=== PATIENT | male | born 1955 | race Caucasian/White ===

== ENCOUNTER → 2021-03-05 11:43 | Outpatient (BNVA) | payer MEDICARE, MEDICAID, SELFPAY | PROVIDERS: Family Provider Family Medicine; PCP Family Medicine; Visit Provider Nurse Practitioner Family | DX: E11.65 Type 2 diabetes mellitus with hyperglycemia (principal) | CPT/HCPCS: 81000; 82043 ==

== ENCOUNTER → 2021-06-25 13:04 | Outpatient (BNVA) | payer MEDICARE, MEDICAID, SELFPAY | PROVIDERS: Family Provider Family Medicine; PCP Family Medicine; Visit Provider Nurse Practitioner Family | DX: R30.0 Dysuria (principal) | CPT/HCPCS: 81000 ==

== ENCOUNTER 2022-03-09 15:22 | Inpatient (IN) | payer MEDICARE, MEDICAID, SELFPAY ==
[2022-03-09] VITALS (7 sets, daily range): BP systolic 157–196; BP diastolic 61–104; PULSE 100–110; RESP 18–24; TEMP 37.2–37.8; O2SAT 91–96; BMI 40.2
--- NOTE | 2022-03-09 15:27 | W.ED.SOB ---
Documented by User: Pio Govea MD 03/21/22 01:04 HPI - SOB/Dyspnea General: Chief Complaint: Fever Stated Complaint: FEVER; SOB Time Seen by Provider: 03/09/22 15:27 History of Present Illness: HPI Narrative: Mr. Figueroa is a 66-year-old gentleman with complex past medical history who presents to the emergency department due to fever with concern over infection. He reports a few day history of increased cough and generalized malaise though no other specific symptoms. Earlier today he had a fall and was seen at [facility]. Apparently he was discharged and upon arrival at the detention was found to have coarse breath sounds with fever and tachycardia. Patient denies history of oxygen requirement though is requiring oxygen now. Overall intensity symptoms is moderate. Course has worsened. No other specific changes in health, exacerbating, or alleviating factors identified. Per discussion with ER physician at [place] a CT of the head and lumbar spine were performed without acute pathology identified. He did have leukocytosis and coarse sounding breath sounds however chest x-ray was reportedly negative and symptoms improved with a normal ABG. The patient was unable to give a urine sample and desires discharge. Onset (ago): hour(s) Severity: moderate Exacerbating factors: exertion Relieving factors: nothing Known history of: COPD Treatment prior to arrival: oxygen Review of Systems General: Reports: 10 or more systems reviewed and unremarkable except in HPI and below PFSH ED PFSH: Medical History Above knee amputation of right lower extremity BPH (benign prostatic hyperplasia) CAD (coronary artery disease) Chronic pain Diabetes GERD (gastroesophageal reflux disease) Hemiplegia affecting left nondominant side Hyperlipidemia Hypertension Hypothyroidism Obesity Stroke Surgical History Hx of AKA (above knee amputation) Social History Lives independently: No Housing: Skilled Nursing Physical Exam Const: COMMON NORMALS: patient oriented x3 GENERAL APPEARANCE: cooperative, well developed and ill appearing HENMT: COMMON NORMALS: normocephalic and atraumatic HEAD & SCALP: normocephalic and atraumatic Eye: COMMON NORMALS: conjunctivae normal CONJUNCTIVA: Yes conjunctivae normal SCLERA: sclerae normal Neck/C-Spine: COMMON NORMALS: supple GENERAL: Yes trachea midline Resp: EFFORT & INSPECTION: Yes able to speak in complete sentences and Yes tachypneic AUSCULTATION: rhonchi and diminished lung sounds Cardio: COMMON NORMALS: regular rhythm RATE: tachycardic RHYTHM: regular rhythm GI: COMMON NORMALS: Soft to palpation PALPATION: Yes Soft to palpation and No Tenderness to palpation present (GI) PERCUSSION: normal to percussion Extremity: NARRATIVE EXTREMITY EXAM: Right AKA GENERAL: Yes normal exam except as noted and No edema Neuro: COMMON NORMALS: patient oriented x3 SENSORIUM/ORIENTATION: No Orientation impaired and Yes somnolent Psych: COMMON NORMALS: mental status grossly normal and Normal thought process present THOUGHT PROCESS: Normal thought process present Course ED course: - Patient was seen and evaluated by me at bedside - Patient placed on cardiac monitors, IV access obtained - Initial evaluation notable for exam as above, ill-appearing with suspicion for pneumonia. Worsening oxygen requirement with hypoxic respiratory failure removed. - Labs and xrays personally interpreted by me. EKG showing sinus tachycardia with no STEMI. - Antibiotic given - Labs notable for leukocytosis, normal hemoglobin. Metabolic panel with hypoxia and respiratory alkalosis. Metabolic panel with intravascular dehydration. Delta troponin is negative. - Imaging notable for no lobar consolidation or pneumothorax, questionable minimal opacities which are somewhat not impressive when compared to patient's clinical presentation. CT scan pending at time of patient handoff - Upon serial reexamination after treatment the patient was somewhat improved. I discussed the case with the ER physician at [place], CT head performed there and CT spine without acute abnormality. - Based on patient history, evaluation, and testing as interpreted the most likely cause of the patient's condition is pneumonia sepsis - I discussed the case with Dr. Monet however patient care handed off to Dr. Martinez pending completion of ED evaluation. Note: Click bubbles or prepopulated [place] in note writing are used for assistance with data collection and billing and are inherently more limited than narrative and other text portions of this note. Please use narrative for additional clinical history and defer to narrative/free test for any case of contradictory information. If information appears in only free text or click bubble it should be considered present or absent as reported. Please contact note senior writer for clarifications of clinical information or contradictory information. MDM is a brief summary, contradictory or erroneous seeming information should be clarified and full note should be reviewed. Vital Signs: Vital signs: Vital Signs Temperature 98.2 F 03/12/22 16:25 Pulse Rate 78 03/12/22 16:25 Respiratory Rate 18 03/12/22 16:25 Blood Pressure 148/70 03/12/22 16:25 Pulse Oximetry 95 03/12/22 16:25 MDM - SOB/Dyspnea Medical Decision Making 66-year-old gentleman presenting with respiratory symptoms found to have pneumonia sepsis. Patient treated with antibiotics. Admitted for further management. 66-year-old male checked out by the previous physician at shift change. This gentleman is hypoxic. He is tachycardic. He has a leukocytosis of 15. Chest CT reveals pneumonia. He is hyperglycemic. He will be admitted for hypoxic respiratory failure with pneumonia and sepsis. Dr. Govea spoke with Dr. Monet earlier about the patient. Medical Records I reviewed the patient's medical records. Lab Data I reviewed the patient's lab results. : 03/12/22 04:14 03/12/22 04:14 Labs/Radiology: Radiology Impressions Chest X-Ray 03/09/22 15:33 IMPRESSION: Subtle ill-defined bibasilar opacities which may reflect atelectasis versus infiltrates. Chest/Abdomen/Pelvis CT 03/09/22 16:13 IMPRESSION: Right lower lobe pneumonia. IMPRESSION: Colonic constipation is present. Chest CTA 03/10/22 05:32 IMPRESSION: 1. Quality of this examination is suboptimal. Centrally there is no pulmonary embolism. Distal peripheral emboli not excluded. There are a few areas of suspicion for small emboli in the lower lobe pulmonary arteries. 2. RIGHT lower lobe pneumonia. Mildly improved since the prior study. 3. Indeterminate but mildly enlarged LEFT axillary and RIGHT hilar lymph nodes measuring up to 19 mm. May be reactive. 4. Subtle area of decreased attenuation in the T5 vertebral body. Could represent a very early metastatic lesion. Bone scan imaging may be helpful for clarification. Bone Scan Nuclear Medicine 03/11/22 06:31 IMPRESSION: There are no osseous lesions suspicious for metastatic disease. No abnormal activity in the T5 vertebral body. Laboratory Results WBC 15.0 10^3/uL (4.0-10.0) H 03/09/22 17:28 Corrected WBC Cancelled 03/09/22 16:19 RBC 4.96 10^6/uL (4.1-5.3) 03/09/22 17: Hgb 14.0 g/dL (11.7-16.6) 03/09/22 17: Hct 41.4 % (42.0-52.0) L 03/09/22 17: MCV 83.5 fl (80-94) 03/09/22 17: MCH 28.2 pg (28.0-34.0) 03/09/22 17: MCHC 33.8 g/dL (30.0-36.0) 03/09/22: RDW 12.8 % (12.1-15.1) 03/09/22: Plt Count 172 10^3/cmm (130-400) 03/09/22 17: MPV 10.8 fL (7.4-10.4) H 03/09/22 17:28 Gran % Cancelled 03/09/22 16:19 Neut % (Auto) 71.6 % 03/09/22 17: Lymph % (Auto) 18.5 % 03/09/22 17: [place] % (Auto) 8.7 % 03/09/22 17: Eos % (Auto) 0.5 % 03/09/22 17: Baso % (Auto) 0.4 % 03/09/22: Neut # (Auto) 10.74 10^3/uL (1.8-7.7) H 03/09/22 17: Lymph # (Auto) 2.8 10^3/uL (0.8-4.8) 03/09/22 17:28 [place] # (Auto) 1.3 10^3/uL (0.2-0.9) H 03/09/22 17: Eos # (Auto) 0.1 10^3/uL (0.0-0.8) 03/09/22 17: Baso # (Auto) 0.1 10^3/uL (0.0-0.1) 03/09/22 17: Absolute Gran (auto) Cancelled 03/09/22 16:19 Nucleated RBC % (auto) 0 % 03/09/22 17:28 Nucleated RBCs # 0.0 /100WBC 03/09/22 17:28 D-Dimer 0.82 ug/mIFEU (0-0.59) H 03/09/22 16:19 Specimen Type Arterial 03/09/22 15:58 Sample Site Radial, left 03/09/22 15:58 ABG pH 7.50 (7.35-7.45) H 03/09/22 15:58 ABG pCO2 35.2 mmHg (35-45) 03/09/22 15:58 ABG pO2 63.4 mmHg (80.0-100.0) L 03/09/22 15:58 ABG HCO3 27.5 mmol/L (22-26) H 03/09/22 15:58 ABG Base Excess 4.5 mmol/L (-2.0-2.0) H 03/09/22 15:58 Kuldeep Test Pos 03/09/22 15:58 Hematocrit 45.5 % (42-52) 03/09/22 15:58 O2 Delivery Device Nc 03/09/22 15:58 O2 Liters/Min 4.0 % 03/09/22 15:58 FiO2 36.0 % 03/09/22 15:58 Drapery Installer ID Cak 03/09/22 15:58 Sodium 130 mmol/L (136-145) L 03/09/22 17:28 Potassium 4.5 mmol/L (3.5-5.1) 03/09/22 17:28 Chloride 91 mmol/L (98-107) L 03/09/22 17:28 Carbon Dioxide 27 mmol/L (22-29) 03/09/22 17:28 Anion Gap 16.5 (5-19) 03/09/22 17:28 BUN 20 mg/dL (8-23) 03/09/22 17:28 Creatinine 1.0 mg/dL (0.7-1.2) 03/09/22 17:28 GFR Calculation 74.5 mL/min (90-130) L 03/09/22 17:28 Glucose 252 mg/dL (65-115) H 03/09/22 17:28 POC Glucose 259 mg/dL (70-110) H 03/09/22 16:02 Calculated Osmolality 281 mOsm/kg (285-295) L 03/09/22 17:28 Lactic Acid 1.8 mmol/L (0.5-2.2) 03/09/22 17:28 Calcium 9.4 mg/dL (8.5-10.5) 03/09/22 17:28 Total Bilirubin 0.9 mg/dL (0.15-1.2) 03/09/22 17:28 AST 21 U/L (0-40) 03/09/22 17:28 ALT 25 U/L (0-41) 03/09/22 17:28 Alkaline Phosphatase 90 IU/L (40-130) 03/09/22 17:28 Troponin T Baseline 28 ng/L (0-15) H 03/09/22 17:28 C-Reactive Protein 179.4 mg/L (0.0-4.9) H 03/09/22 17: NT-Pro-B Natriuret Pep 289 pg/mL (0-125) H 03/09/22 17:28 Total Protein 7.6 g/dL (6.6-8.7) 03/09/22 17:28 Albumin 3.9 g/dL (3.5-5.2) 03/09/22 17: Globulin 3.7 g/dL (1.3-4.6) 03/09/22 17:28 Procalcitonin 0.24 ng/mL (0-0.5) 03/09/22 17:28 TSH 0.59 uIU/mL (0.27-4.20) 03/09/22 17:28 Urine Color Yellow (Yellow) 03/09/22 17:50 Urine Appearance Clear (CLEAR) 03/09/22 17:50 Urine pH 6.5 (5-7) 03/09/22 17:50 Ur Specific [place] 1.010 (1.005-1.030) 03/09/22 17:50 Urine Protein Neg (Negative) 03/09/22 17:50 Urine Glucose (UA) 2+ (Normal) H 03/09/22 17:50 Urine Ketones Negative (Negative) 03/09/22 17:50 Urine Blood Neg (Negative) 03/09/22 17:50 Urine Nitrate Negative (Negative) 03/09/22 17:50 Urine Bilirubin Neg (Negative) 03/09/22 17:50 Urine Urobilinogen Norm mg/dL (Negative) 03/09/22 17:50 Ur Leukocyte Esterase Negative (Negative) 03/09/22 17:50 Coronavirus 229E (PCR) Not detected (NOT DETECT) 03/09/22 16:00 SARS-CoV-2 (PCR) Not detected (NOT DETECT) 03/09/22 16:00 Discharge Plan Discharge Patient Disposition: Admitted As Inpatient Admit Provider: Lawrence Monet Clinical Impression: Sepsis, Acute and chronic respiratory failure with hypoxia Condition: Stable Discharge Diet: Diabetic Discharge Activity: Use walker/crutches as instructed Coding Level of Care Code ED Curriculum Consultant for Chg Fwd Exam Comprehensive Documented by User: Javi Martinez DO 03/09/22 19:30 HPI - SOB/Dyspnea General: Chief Complaint: Fever Stated Complaint: FEVER; SOB Time Seen by Provider: 03/09/22 15:27 PFS ED PFSH: Medical History Above knee amputation of right lower extremity BPH (benign prostatic hyperplasia) CAD (coronary artery disease) Chronic pain Diabetes GERD (gastroesophageal reflux disease) Hemiplegia affecting left nondominant side Hyperlipidemia Hypertension Hypothyroidism Obesity Stroke Surgical History Hx of AKA (above knee amputation) Social History Lives independently: No Housing: Skilled Nursing Course Vital Signs: Vital signs: Vital Signs Temperature 98.2 F 03/12/22 16:25 Pulse Rate 78 03/12/22 16:25 Respiratory Rate 18 03/12/22 16:25 Blood Pressure 148/70 03/12/22 16:25 Pulse Oximetry 95 03/12/22 16:25 MDM - SOB/Dyspnea Medical Decision Making 66-year-old male checked out by the previous physician at shift change. This gentleman is hypoxic. He is tachycardic. He has a leukocytosis of 15. Chest CT reveals pneumonia. He is hyperglycemic. He will be admitted for hypoxic respiratory failure with pneumonia and sepsis. Dr. Govea spoke with Dr. Monet earlier about the patient. Lab Data : 03/12/22 04:14 03/12/22 04:14 Labs/Radiology: Radiology Impressions Chest X-Ray 03/09/22 15:33 IMPRESSION: Subtle ill-defined bibasilar opacities which may reflect atelectasis versus infiltrates. Chest/Abdomen/Pelvis CT 03/09/22 16:13 IMPRESSION: Right lower lobe pneumonia. IMPRESSION: Colonic constipation is present. Chest CTA 03/10/22 05:32 IMPRESSION: 1. Quality of this examination is suboptimal. Centrally there is no pulmonary embolism. Distal peripheral emboli not excluded. There are a few areas of suspicion for small emboli in the lower lobe pulmonary arteries. 2. RIGHT lower lobe pneumonia. Mildly improved since the prior study. 3. Indeterminate but mildly enlarged LEFT axillary and RIGHT hilar lymph nodes measuring up to 19 mm. May be reactive. 4. Subtle area of decreased attenuation in the T5 vertebral body. Could represent a very early metastatic lesion. Bone scan imaging may be helpful for clarification. Bone Scan Nuclear Medicine 03/11/22 06:31 IMPRESSION: There are no osseous lesions suspicious for metastatic disease. No abnormal activity in the T5 vertebral body. Laboratory Results WBC 15.0 10^3/uL (4.0-10.0) H 03/09/22 17:28 Corrected WBC Cancelled 03/09/22 16:19 RBC 4.96 10^6/uL (4.1-5.3) 03/09/22 17:28 Hgb 14.0 g/dL (11.7-16.6) 03/09/22 17:28 Hct 41.4 % (42.0-52.0) L 03/09/22 17:28 MCV 83.5 fl (80-94) 03/09/22 17:28 MCH 28.2 pg (28.0-34.0) 03/09/22 17:28 MCHC 33.8 g/dL (30.0-36.0) 03/09/22 17:28 RDW 12.8 % (12.1-15.1) 03/09/22 17:28 Plt Count 172 10^3/cmm (130-400) 03/09/22 17:28 MPV 10.8 fL (7.4-10.4) H 03/09/22 17:28 Gran % Cancelled 03/09/22 16:19 Neut % (Auto) 71.6 % 03/09/22 17:28 Lymph % (Auto) 18.5 % 03/09/22 17:28 [place] % (Auto) 8.7 % 03/09/22 17:28 Eos % (Auto) 0.5 % 03/09/22 17:28 Baso % (Auto) 0.4 % 03/09/22 17:28 Neut # (Auto) 10.74 10^3/uL (1.8-7.7) H 03/09/22 17:28 Lymph # (Auto) 2.8 10^3/uL (0.8-4.8) 03/09/22 17:28 [place] # (Auto) 1.3 10^3/uL (0.2-0.9) H 03/09/22 17:28 Eos # (Auto) 0.1 10^3/uL (0.0-0.8) 03/09/22 17:28 Baso # (Auto) 0.1 10^3/uL (0.0-0.1) 03/09/22 17:28 Absolute Gran (auto) Cancelled 03/09/22 16:19 Nucleated RBC % (auto) 0 % 03/09/22 17:28 Nucleated RBCs # 0.0 /100WBC 03/09/22 17:28 D-Dimer 0.82 ug/mIFEU (0-0.59) H 03/09/22 16:19 Specimen Type Arterial 03/09/22 15:58 Sample Site Radial, left 03/09/22 15:58 ABG pH 7.50 (7.35-7.45) H 03/09/22 15:58 ABG pCO2 35.2 mmHg (35-45) 03/09/22 15:58 ABG pO2 63.4 mmHg (80.0-100.0) L 03/09/22 15:58 ABG HCO3 27.5 mmol/L (22-26) H 03/09/22 15:58 ABG Base Excess 4.5 mmol/L (-2.0-2.0) H 03/09/22 15:58 Kuldeep Test Pos 03/09/22 15:58 Hematocrit 45.5 % (42-52) 03/09/22 15:58 O2 Delivery Device Nc 03/09/22 15:58 O2 Liters/Min 4.0 % 03/09/22 15:58 FiO2 36.0 % 03/09/22 15:58 Drapery Installer ID Cak 03/09/22 15:58 Sodium 130 mmol/L (136-145) L 03/09/22 17:28 Potassium 4.5 mmol/L (3.5-5.1) 03/09/22 17:28 Chloride 91 mmol/L (98-107) L 03/09/22 17:28 Carbon Dioxide 27 mmol/L (22-29) 03/09/22 17:28 Anion Gap 16.5 (5-19) 03/09/22 17:28 BUN 20 mg/dL (8-23) 03/09/22 17:28 Creatinine 1.0 mg/dL (0.7-1.2) 03/09/22 17:28 GFR Calculation 74.5 mL/min (90-130) L 03/09/22 17:28 Glucose 252 mg/dL (65-115) H 03/09/22 17:28 POC Glucose 259 mg/dL (70-110) H 03/09/22 16:02 Calculated Osmolality 281 mOsm/kg (285-295) L 03/09/22 17:28 Lactic Acid 1.8 mmol/L (0.5-2.2) 03/09/22 17:28 Calcium 9.4 mg/dL (8.5-10.5) 03/09/22 17:28 Total Bilirubin 0.9 mg/dL (0.15-1.2) 03/09/22 17:28 AST 21 U/L (0-40) 03/09/22 17:28 ALT 25 U/L (0-41) 03/09/22 17:28 Alkaline Phosphatase 90 IU/L (40-130) 03/09/22 17:28 Troponin T Baseline 28 ng/L (0-15) H 03/09/22 17:28 C-Reactive Protein 179.4 mg/L (0.0-4.9) H 03/09/22 17:28 NT-Pro-B Natriuret Pep 289 pg/mL (0-125) H 03/09/22 17:28 Total Protein 7.6 g/dL (6.6-8.7) 03/09/22 17:28 Albumin 3.9 g/dL (3.5-5.2) 03/09/22 17:28 Globulin 3.7 g/dL (1.3-4.6) 03/09/22 17:28 Procalcitonin 0.24 ng/mL (0-0.5) 03/09/22 17:28 TSH 0.59 uIU/mL (0.27-4.20) 03/09/22 17:28 Urine Color Yellow (Yellow) 03/09/22 17:50 Urine Appearance Clear (CLEAR) 03/09/22 17:50 Urine pH 6.5 (5-7) 03/09/22 17:50 Ur Specific [place] 1.010 (1.005-1.030) 03/09/22 17:50 Urine Protein Neg (Negative) 03/09/22 17:50 Urine Glucose (UA) 2+ (Normal) H 03/09/22 17:50 Urine Ketones Negative (Negative) 03/09/22 17:50 Urine Blood Neg (Negative) 03/09/22 17:50 Urine Nitrate Negative (Negative) 03/09/22 17:50 Urine Bilirubin Neg (Negative) 03/09/22 17:50 Urine Urobilinogen Norm mg/dL (Negative) 03/09/22 17:50 Ur Leukocyte Esterase Negative (Negative) 03/09/22 17:50 Coronavirus 229E (PCR) Not detected (NOT DETECT) 03/09/22 16:00 SARS-CoV-2 (PCR) Not detected (NOT DETECT) 03/09/22 16:00 Discharge Plan Discharge Patient Disposition: Admitted As Inpatient Admit Provider: Lawrence Monet Clinical Impression: Sepsis, Acute and chronic respiratory failure with hypoxia Condition: Stable Discharge Diet: Diabetic Discharge Activity: Use walker/crutches as instructed Coding Level of Care Code ED Curriculum Consultant for Chg Fwd Exam Comprehensive
--- NOTE | 2022-03-09 15:33 | XRR_ITS ---
PROCEDURE INFORMATION: Exam: XR Chest Exam date and time: 03/09/2022 3:40 PM Age: 66 years old Clinical indication: Cough and shortness of breath; Additional info: SOB, cough TECHNIQUE: Imaging protocol: Radiologic exam of the chest. Views: 1 view. COMPARISON: No relevant prior studies available. FINDINGS: Lungs: Subtle ill-defined bibasilar opacities. Pleural spaces: No pleural effusion. No pneumothorax. Heart/Mediastinum: No cardiomegaly. Bones/joints: Visualized osseous structures are intact. XR/XR chest 1V portable [id number] IMPRESSION: Subtle ill-defined bibasilar opacities which may reflect atelectasis versus infiltrates.
[2022-03-09 16:07] LABS: Glucose Point of Care 259 mg/dL (70-110)
[2022-03-09 16:09] LABS: ABG PCO2 35.2 mmHg (35-45); Arterial Blood Gas Hematocrit 45.5 % (42-52); Base Excess ABG 4.5 mmol/L (-2.0-2.0); Blood Gas Allen Test Pos; Blood Gas Operator Identificat CAK; Blood Gas Sample Site Radial, left; Blood Gas Sample Type Arterial; HCO3 ABG 27.5 mmol/L (22-26); Oxygen Device NC; PO2 ABG 63.4 mmHg (80.0-100.0)
--- NOTE | 2022-03-09 16:13 | CTR_ITS ---
PROCEDURE INFORMATION: Exam: CT Chest Without Contrast; Diagnostic Exam date and time: 03/09/2022 6:12 PM Age: 66 years old Clinical indication: Abnormal diagnostic tests; Prior surgery; Surgery type: Gb; Patient HX: Cough with fever and hypoxia. Elevated wbc. ; Additional info: AMS, sepsis, new o2 TECHNIQUE: Imaging protocol: Diagnostic computed tomography of the chest without contrast. Radiation optimization: All CT scans at this facility use at least one of these dose optimization techniques: automated exposure control; mA and/or kV adjustment per patient size (includes targeted exams where dose is matched to clinical indication); or iterative reconstruction. COMPARISON: CR (CHEST, ) 03/09/2022 3:40 PM RADIATION DOSE METRICS: Total DLP (mGy-cm): 3772.34 FINDINGS: Lungs: Right lower lobe pneumonia. Pleural spaces: Unremarkable. No pneumothorax. No pleural effusion. Heart: Multivessel atherosclerotic disease which involves the coronary arteries. There are postoperative changes in the region of the atrial septum. Lymph nodes: Unremarkable. No enlarged lymph nodes. Vasculature: Unremarkable. No aortic aneurysm. Bones/joints: Unremarkable. No acute fracture. Soft tissues: Unremarkable. PROCEDURE INFORMATION: Exam: CT Abdomen And Pelvis Without Contrast Exam date and time: 03/09/2022 6:12 PM Age: 66 years old Clinical indication: Abnormal diagnostic tests; Prior surgery; Surgery type: Gb; Patient HX: Cough with fever and hypoxia. Elevated wbc. ; Additional info: AMS, sepsis, new o2 TECHNIQUE: Imaging protocol: Computed tomography of the abdomen and pelvis without contrast. Radiation optimization: All CT scans at this facility use at least one of these dose optimization techniques: automated exposure control; mA and/or kV adjustment per patient size (includes targeted exams where dose is matched to clinical indication); or iterative reconstruction. COMPARISON: CR (CHEST, ) 03/09/2022 3:40 PM RADIATION DOSE METRICS: Total DLP (mGy-cm): 3772.34 FINDINGS: Heart: Multivessel atherosclerotic disease which involves the coronary arteries. Liver: Normal. No mass. Gallbladder and bile ducts: The gallbladder has been removed. Pancreas: Normal. No ductal dilation. Spleen: Normal. No splenomegaly. Adrenal glands: Normal. No mass. Kidneys and ureters: Normal. No hydronephrosis. Stomach and bowel: Colonic constipation is present. Appendix: No evidence of appendicitis. Intraperitoneal space: Unremarkable. No free air. No significant fluid collection. Vasculature: Unremarkable. No abdominal aortic aneurysm. Lymph nodes: Multiple subcentimeter mesenteric and retroperitoneal lymph nodes. There is a 2.1 x 1.6 cm left retroperitoneal lymph node. Some of the retroperitoneal lymph nodes have an abnormal/rounded appearance. Urinary bladder: There is a Anton catheter and air in the bladder. Reproductive: Unremarkable as visualized. Bones/joints: Unremarkable. No acute fracture. Soft tissues: There is edema in the subcutaneous soft tissues of the ventral abdomen. CT/[place] [id number] IMPRESSION: Right lower lobe pneumonia. IMPRESSION: Colonic constipation is present.
[2022-03-09] MEDS: cefTRIAXone 1,000 MG in sodium chloride 0.9% (plus) 50 ML 100 MG IV (17:20)
--- NOTE | 2022-03-09 17:20 | PM.HP ---
Providers/Chief Complaint Chief Complaint: FEVER; SOB History of Present Illness Jose Maria Figueroa is a 66 year old male came from [facility] for chief complaint of worsening shortness of breath. Patient is stating that he fell off his wheelchair few days ago and since then his cough has not subsided. He spiked a fever today that prompted his visit to the ER. From [facility] he was sent to [facility] where he was diagnosed with leukocytosis, he was given some fluids, he was diagnosed with some coarse rhonchi and crackles and he was discharged back to [facility], after today's event he was sent to our hospital for further evaluation. At the time evaluation patient is stating that he has residual weakness on left side from his previous stroke He also has short-term memory loss Endorsing fever, cough, denying chest pain, diarrhea, abdominal pain dysuria. He does not use oxygen on daily basis, his ox requirement is new currently requiring 5 L nasal cannula Is febrile, tachycardic and tachypneic ABG revealed hypoxia on 4 L nasal cannula Chest x-ray consistent with pneumonia Review of Systems Const: Reports: fever(s), chills and body aches Eyes: Denies: change in vision ENMT: Denies: throat pain Card: Reports: swelling of feet/ankles; Denies: chest pain Resp: Reports: dyspnea GI: Denies: abdominal pain : Denies: flank pain Musc: Denies: neck pain Skin/Breast: Reports: rash, changing lesions and lesions Psych: Denies: anxiety Endo: Denies: polyuria Nimesh/Lymph: Denies: easy bruising All/Imm: Denies: urticaria Medications/Allergies Home Medications Medication Instructions Recorded Confirmed Last Taken Type acetaminophen 325 mg tablet 650 mg PO Q4H PRN 03/09/22 03/09/22 Unknown History alprazolam 1 mg tablet 0.5 mg PO BEDTIME 03/09/22 03/09/22 Unknown History ammonium lactate 12 % topical cream 1 applic TOPICAL BID PRN 03/09/22 03/09/22 Unknown History aspirin 81 mg chewable tablet 81 mg PO DAILY 03/09/22 03/09/22 Unknown History atorvastatin 40 mg tablet 40 mg PO BEDTIME 03/09/22 03/09/22 Unknown History baclofen 10 mg tablet 10 mg PO TID 03/09/22 03/09/22 Unknown History bisacodyl 10 mg rectal suppository 10 mg FL DAILY PRN 03/09/22 03/09/22 Unknown History bisacodyl 5 mg tablet,delayed 20 mg PO DAILY PRN 03/09/22 03/09/22 Unknown History release carbamide peroxide 6.5 % ear drops 5 drp OTIC (EAR) DAILY PRN 03/09/22 03/09/22 Unknown History cholecalciferol (vitamin D3) 10 20 mcg PO DAILY 03/09/22 03/09/22 Unknown History mcg (400 unit) capsule (Vitamin D3) clopidogrel 75 mg tablet 75 mg PO DAILY 03/09/22 03/09/22 Unknown History docusate sodium 100 mg capsule 100 mg PO DAILY 03/09/22 03/09/22 Unknown History escitalopram oxalate 20 mg tablet 20 mg PO DAILY 03/09/22 03/09/22 Unknown History (Lexapro) exenatide microspheres 2 mg/0.85 2 mg SUBCUT Q7D 03/09/22 03/09/22 Unknown History mL subcutaneous auto-injector (Bydavie BCi) furosemide 20 mg tablet (Lasix) 20 mg PO DAILY 03/09/22 03/09/22 Unknown History gabapentin 600 mg tablet 600 mg PO TID 03/09/22 03/09/22 Unknown History hydrocodone 5 mg-acetaminophen 325 1 tab PO Q8H PRN 03/09/22 03/09/22 Unknown History mg tablet ibuprofen 600 mg tablet 600 mg PO Q6H PRN 03/09/22 03/09/22 Unknown History icosapent ethyl 1 gram capsule 2 g PO BID 03/09/22 03/09/22 Unknown History (Vascepa) insulin aspart U-100 100 unit/mL See Rx Instructions .ROUTE .COMPLEX 03/09/22 03/09/22 Unknown History subcutaneous solution (Novolog U-100 Insulin aspart) insulin detemir U-100 100 unit/mL 84 unit SUBCUT BID 03/09/22 03/09/22 Unknown History subcutaneous solution (Levemir U-100 Insulin) levothyroxine 50 mcg tablet 50 mcg PO DAILY 03/09/22 03/09/22 Unknown History magnesium hydroxide 400 mg/5 mL 30 ml PO DAILY PRN 03/09/22 03/09/22 Unknown History oral suspension (Milk of Magnesia) magnesium oxide 400 mg PO TID 03/09/22 03/09/22 Unknown History menthol 4 % topical gel (Biofreeze 1 applic TOPICAL Q4H PRN 03/09/22 03/09/22 Unknown History (menthol)) metformin 500 mg tablet 500 mg PO BID 03/09/22 03/09/22 Unknown History metoprolol tartrate 50 mg tablet 50 mg PO BID 03/09/22 03/09/22 Unknown History miconazole nitrate 2 % topical 1 applic TOPICAL BID 03/09/22 03/09/22 Unknown History cream miconazole nitrate 2 % topical 1 applic TOPICAL Q8H PRN 03/09/22 03/09/22 Unknown History cream pantoprazole 40 mg tablet,delayed 40 mg PO DAILY 03/09/22 03/09/22 Unknown History release sodium phosphates 19 gram-7 118 ml FL DAILY PRN 03/09/22 03/09/22 Unknown History gram/118 mL enema (Enema) tamsulosin 0.4 mg capsule 0.8 mg PO DAILY 03/09/22 03/09/22 Unknown History trazodone 50 mg tablet 50 mg PO BEDTIME 03/09/22 03/09/22 Unknown History Allergies Allergy/AdvReac Type Severity Reaction Status Date / Time iodine Allergy Unknown Unknown Verified 03/09/22 16:13 PFSH Acute PFSH: Medical History Above knee amputation of right lower extremity BPH (benign prostatic hyperplasia) CAD (coronary artery disease) Chronic pain Diabetes GERD (gastroesophageal reflux disease) Hemiplegia affecting left nondominant side Hyperlipidemia Hypertension Hypothyroidism Obesity Stroke Surgical History Hx of AKA (above knee amputation) Social History Lives independently: No Housing: [facility] Vitals/I&O/Wt Last Vital Signs Temp 100.1 F H 03/09/22 15:29 Pulse 108 H 03/09/22 16:53 Resp 24 H 03/09/22 16:53 BP 157/61 03/09/22 16:53 Pulse Ox 94 03/09/22 16:53 Weight last 48 hrs Weight 138.346 kg Physical Exam Narrative: History of above-knee amputation Patient does look bloated Signs of congestive heart failure present Skin rash present on his left arm Nonpurulent Ringworm? Awake and alert Nonfocal Currently on 5 L nasal cannula No active chest pain Abdomen distended visceral obesity Nontender Left-sided residual weakness Answer my questions appropriately Not confused Data : 03/09/22 17:28 03/10/22 06:00 A&P Assessment and plan (1) Hemiplegia affecting left nondominant side: Status: Acute (2) BPH (benign prostatic hyperplasia): Status: Acute (3) GERD (gastroesophageal reflux disease): Status: Acute (4) CAD (coronary artery disease): Status: Acute (5) Obesity: Status: Acute (6) Diabetes: Status: Acute (7) Community acquired pneumonia: Status: Acute Plan Sepsis related to community-acquired pneumonia Start ceftriaxone azithromycin Judicious use of fluids because of signs of congestive heart failure Check BNP Check echo Lactic acid, blood cultures to be taken Antibiotics administered Will request D-dimer and chest CT abdomen pelvis Sputum culture Check COVID Patient is immunocompromised because of diabetes, bedbound Congestive heart failure acute exacerbation Check echo and BNP Echo is unknown Clinically does look fluid overloaded BPH: Continue tamsulosin BMP is pending Diabetic diet Sliding scale Full code Acute hypoxia related to pneumonia 5 L [facility] Medical Necessity Statement*: Anticipating more than 2 midnights in the hospital for management of sepsis related to pneumonia Time Spent in Patient Care: 40 Coding Level of Care Code Acute Artificial Limb Maker for Chg Fwd Diagnoses Hemiplegia affecting left nondominant side G81.94 BPH (benign prostatic hyperplasia) N40.0 GERD (gastroesophageal reflux disease) K21.9 CAD (coronary artery disease) I25.10 Obesity E66.9 Diabetes E11.9 Community acquired pneumonia J18.9
--- NOTE | 2022-03-09 17:34 | ECG_ITS ---
[facility] Test Date: 2022-03-09 Pat Name: Jose Maria Figueroa Department: Room: Gender: Male Hearing Consultant: : 1955 Requested By: Pio Govea Order Number: [id number] Santiago MD: Pasquale Gardner M.D. Measurements Intervals [place] Rate: 107 P: 62 CA: 185 QRS: -33 QRSD: 111 T: 62 QT: 350 QTc: 468 Interpretive Statements SINUS TACHYCARDIA LEFT AXIS DEVIATION [QRS AXIS < -30] MODERATE INTRAVENTRICULAR CONDUCTION DELAY [110+ ms QRS DURATION] MINIMAL VOLTAGE CRITERIA FOR LVH, CONSIDER NORMAL VARIANT [MEETS CRITERIA IN ONE OF: R(aVL), S(V1), R(V5), R(V5/V6)+S(V1)] No previous ECG available for comparison Electronically Signed On 03-10-2022 17:38:08 CDT by Pasquale Gardner M.D. [email or web address]/store/[id number]
[2022-03-09 17:35] LABS: Basophils # 0.1 10^3/uL (0.0-0.1); Basophils % 0.4 %; Eosinophils # 0.1 10^3/uL (0.0-0.8); Eosinophils % 0.5 %; Hematocrit 41.4 % (42.0-52.0); Lymphocytes # 2.8 10^3/uL (0.8-4.8); Lymphocytes % 18.5 %; Mean Corpuscular HGB Conc 33.8 g/dL (30.0-36.0); Mean Corpuscular Hemoglobin 28.2 pg (28.0-34.0); Mean Corpuscular Volume 83.5 fl (80-94); Mean Platelet Volume 10.8 fL (7.4-10.4); Monocytes # 1.3 10^3/uL (0.2-0.9); Monocytes % 8.7 %; Neutrophils # 10.74 10^3/uL (1.8-7.7); Neutrophils % 71.6 %; Nucleated Red Blood Cells % 0 %; Platelet Count 172 10^3/cmm (130-400); Red Blood Count 4.96 10^6/uL (4.1-5.3); Red Cell Distribution Width 12.8 % (12.1-15.1)
[2022-03-09 17:56] LABS: Adenovirus Not Detected (NOT DETECT); Chlamydia Pneumoniae Not Detected (NOT DETECT); Coronavirus 229E,HKU1,NL63,OC4 Not Detected (NOT DETECT); Human Metapneumovirus Not Detected (NOT DETECT); Human Rhinovirus/Enterovirus Not Detected (NOT DETECT); Influenza A Not Detected (NOT DETECT); Influenza A H1 Not Detected (NOT DETECT); Influenza A H1-2009 Not Detected (NOT DETECT); Influenza A H3 Not Detected (NOT DETECT); Influenza B Not Detected (NOT DETECT); Mycoplasma Pneumoniae Not Detected (NOT DETECT); Parainfluenza Virus Type 1 Not Detected (NOT DETECT); Parainfluenza Virus Type 2 Not Detected (NOT DETECT); Parainfluenza Virus Type 3 Not Detected (NOT DETECT); Parainfluenza Virus Type 4 Not Detected (NOT DETECT); Respiratory Syncytial Virus A Not Detected (NOT DETECT); Respiratory Syncytial Virus B Not Detected (NOT DETECT); SARS-COV-2 Not Detected (NOT DETECT)
[2022-03-09 18:05] LABS: Lactic Sepsis W/Reflex 1.8 mmol/L (0.5-2.2)
[2022-03-09 18:07] LABS: Troponin(5th) Baseline 28 ng/L (0-15)
[2022-03-09 18:17] LABS: NT Pro B Type Natriuretic Pept 289 pg/mL (0-125); Procalcitonin 0.24 ng/mL (0-0.5); Thyroid Stimulating Hormone 0.59 uIU/mL (0.27-4.20)
[2022-03-09 18:22] LABS: Add Urine Microscopic? NO; Charge for UA Resulting for Rev
[2022-03-09 18:22] LABS: D Dimer 0.82 ug/mIFEU (0-0.59)
[2022-03-09 18:28] LABS: Bilirubin Urine Neg (Negative); Blood Urine Neg (Negative); Glucose Urine UA 2+ (Normal); Ketones Urine Negative (Negative); Leukocyte Esterase Urine Negative (Negative); Nitrate Urine Negative (Negative); Protein Urine Neg (Negative); Urine Appearance Clear (CLEAR); Urine Color Yellow (Yellow); Urobilinogen Urine Norm (Negative); pH Urine 6.5 (5-7)
[2022-03-09 18:28] LABS: Alanine Aminotransferase 25 U/L (0-41); Albumin Level 3.9 g/dL (3.5-5.2); Alkaline Phosphatase 90 IU/L (40-130); Anion Gap 16.5 (5-19); Aspartate Amino Transferase 21 U/L (0-40); Blood Urea Nitrogen 20 mg/dL (8-23); C Reactive Protein 179.4 mg/L (0.0-4.9); Calcium 9.4 mg/dL (8.5-10.5); Carbon Dioxide 27 mmol/L (22-29); Chloride 91 mmol/L (98-107); Globulin 3.7 g/dL (1.3-4.6); Glomerular Filtration Rate 74.5 mL/min (90-130); Glucose 252 mg/dL (65-115); Osmolality Calculated 281 mOsm/kg (285-295); Potassium 4.5 mmol/L (3.5-5.1); Sodium 130 mmol/L (136-145); Total Bilirubin 0.9 mg/dL (0.15-1.2); Total Protein 7.6 g/dL (6.6-8.7)
[2022-03-09] MEDS: metoprolol tartrate 50 mg Tablet PO (19:31)
[2022-03-09 19:54] LABS: Glucose Point of Care 241 mg/dL (70-110)
--- NOTE | 2022-03-09 21:34 | ECG_ITS ---
[facility] Test Date: 2022-03-09 Pat Name: Jose Maria Figueroa Department: Room: 255 Gender: Male Checkout Operator: : 1955 Requested By: Pio Govea Order Number: [id number] Santiago MD: Pasquale Gardner M.D. Measurements Intervals [place] Rate: 101 P: 63 ID: [id number] QRS: -32 QRSD: 121 T: 56 QT: 356 QTc: 462 Interpretive Statements SINUS TACHYCARDIA LEFT AXIS DEVIATION [QRS AXIS < -30] MODERATE INTRAVENTRICULAR CONDUCTION DELAY [110+ ms QRS DURATION] Compared to ECG 03/09/2022 16:37:39 No significant changes Electronically Signed On 03-10-2022 17:37:16 CDT by Pasquale Gardner M.D. [id number]
[2022-03-09 22:06] LABS: Glucose Point of Care 230 mg/dL (70-110)
[2022-03-09] MEDS: gabapentin 300 mg Capsule 600 MG PO (22:08)
[2022-03-09] MEDS: magnesium hydroxide 30 mL UDC PO (22:08)
[2022-03-09] MEDS: magnesium oxide 400 mg tablet PO (22:09)
[2022-03-09] MEDS: insulin lispro 100 unit/1 mL SUBCUT (22:09)
[2022-03-10] VITALS (8 sets, daily range): BP systolic 134–169; BP diastolic 67–91; PULSE 70–104; RESP 18–22; TEMP 36.4–38.4; O2SAT 91–94
[2022-03-10 04:30] LABS: Glucose Point of Care 219 mg/dL (70-110)
--- NOTE | 2022-03-10 04:37 | USCV_ITS ---
Jose Maria Figueroa Age: 66 Gender: M : 1955 Exam Date: 03/10/2022 10:07 Ordering Phys: Lawrence Monet MD Technologist: Cristopher Benoit Exam Location: [facility] Indication: chf BP: 142 / 85 HR: 102 Rhythm: Sinus Technical Quality: Adequate MEASUREMENTS (Male / Female) Normal Values 2D ECHO LV Diastolic Diameter PLAX 4.5 cm 4.2 - 5.9 / 3.9 - 5.3 cm LV Systolic Diameter PLAX 3.3 cm IVS Diastolic Thickness 1.3 cm 0.6 - 1.0 / 0.6 - 0.9 cm IVS Systolic Thickness 1.7 cm LVPW Diastolic Thickness 1.8 cm 0.6 - 1.0 / 0.6 - 0.9 cm LVPW Systolic Thickness 1.8 cm LVOT Diameter 2.0 cm LV Ejection Fraction 2D Teich 54.3 % LV Ejection Fraction MOD 2C 66.6 % LV Ejection Fraction 2C AL 65.6 % LA Diameter 4.6 cm M-MODE Aortic Annulus Diameter 4.0 cm LA Ao Ratio MM 1.3 MV E Point Septal Separation 1.7 cm DOPPLER AV Peak Velocity 166.0 cm/s LVOT Peak Velocity 131.0 cm/s AV Area Cont Eq vti 2.3 cm squared AV Area Cont Eq pk 2.6 cm squared MV Area PHT 5.0 cm squared Mitral E to A Ratio 0.9 MV E' Velocity 117.0 cm/s TR Peak Velocity 159.7 cm/s TR Peak Gradient 10.2 mmHg TV Peak E Velocity 140.0 cm/s Right Atrial Pressure 3.0 mmHg Pulmonary Artery Systolic Pressu 13.2 mmHg PV Peak Velocity 123.0 cm/s FINDINGS Left Ventricle Normal left ventricular size and systolic function, EF 64 %. No regional wall motion abnormalities. Mild left ventricular hypertrophy. Right Ventricle Appears to be normal size and ejection fraction Right Atrium Possibly of normal size Left Atrium Possibly of normal size Mitral Valve Morphology could not be delineated Aortic Valve Morphology could not be delineated Tricuspid Valve Morphology could not be delineated Pulmonic Valve Pulmonic valve not well visualized. Pericardium No pericardial effusion. Aorta Normal aortic annulus size. IVC Inferior vena cava not visualized. CONCLUSIONS Normal left ventricular size and systolic function, EF 64 %. No regional wall motion abnormalities. Mild left ventricular hypertrophy. (Contrast was used to delineate the endocardium). Right ventricle possibly of normal size ejection fraction. The atria also appeared to be of normal size. Technically limited study Dr Jovi Baltazar MD FACC (Electronically Signed) Final Date: 10 March 2022 20:23 S
--- NOTE | 2022-03-10 05:25 | P.PN_ITS ---
Subjective Subjective: Patient still spiking fever escalated antibiotics to vancomycin and Zosyn Oxygen requirement has worsened Will ask RT to switch him to Ventimask Legionella antigen negative Tachycardia is appropriate to fever Vitals/I&O/Wt Last Vital Signs Temp 100.4 F H 03/10/22 04:00 Pulse 104 H 03/10/22 04:00 Resp 20 H 03/10/22 04:00 BP 134/67 03/10/22 04:00 Pulse Ox 92 03/10/22 04:00 03/09/22 03/09/22 03/10/22 14:59 22:59 06:59 Intake Total 270 / 270 Output Total 2069 / 2069 Balance 270 / 270 -2069 / -1800 Weight last 48 hrs Weight 142.972 kg Weight 138.346 kg Physical Exam Narrative: Toxic appearance Sepsis Nonfocal neuro exam Patient has residual weakness on left side from previous stroke Morbidly obese Rhonchi and crackles positive Chest congestion S1, S2 sinus tachycardia Clinically looks bloated Abdomen soft, visceral obesity Urinary Catheter Management: Anton: Cath Placed During This Visit: yes Reason for Continuing Indwelling Catheter: Acute Urinary Retention or Obstruction Urinary Catheter Date of Insertion: 03/09/22 Urinary Catheter Time of Insertion: 19:53 Data : 03/09/22 17:28 03/10/22 06:00 Micro: Microbiology 03/10/22 03:30 Legionella Urinary Antigen - Final Urine Catheterized 03/09/22 17:15 Blood Culture - Preliminary Blood SPECIMEN COLLECTED 03/09/22 17:00 Blood Culture - Preliminary Blood SPECIMEN COLLECTED A&P Assessment and plan (1) Sepsis: Status: Acute (2) Acute and chronic respiratory failure with hypoxia: Status: Acute (3) Community acquired pneumonia: Status: Acute (4) Hemiplegia affecting left nondominant side: Status: Acute (5) BPH (benign prostatic hyperplasia): Status: Acute (6) Above knee amputation of right lower extremity: Status: Acute (7) Hypothyroidism: Status: Acute (8) CAD (coronary artery disease): Status: Acute (9) Diabetes: Status: Acute (10) Obesity: Status: Acute (11) Hypertension: Status: Acute Plan Sepsis related to community-acquired pneumonia I will escalate his antibiotics to vancomycin and Zosyn Patient is still spiking fever Appropriately tachycardic to fever Judicious use of fluids because of clinical signs of fluid overload BNP is not high request be false negative due to his BMI Will follow up with echo Acute hypoxia related to pneumonia D-dimer is not significantly high for his age However would like to rule out PE Request venous Doppler I will request CTA chest tomorrow in case his hypoxia worsens further Closer monitoring for any further worsening of hypoxia Hyperglycemia related to type 2 diabetes He is on high doses of Lantus, sliding scale follow-up on A1c level CHF exacerbation EF unknown Judicious use of diuretics in the setting of sepsis Negative fluid balance Urine color is concentrated, cut back on diuretics Patient is full code Currently consistent carb diet DVT prophylaxis on board Attestations Medical Necessity Statement*: Continue medical management Time Spent in Patient Care: 30 Coding Level of Care Code Acute Lithoduplicator Operator for g Fwd Diagnoses Sepsis A41.9 Acute and chronic respiratory failure with hypoxia J96.21 Community acquired pneumonia J18.9 Hemiplegia affecting left nondominant side G81.94 BPH (benign prostatic hyperplasia) N40.0 Above knee amputation of right lower extremity S78.111A Hypothyroidism E03.9 CAD (coronary artery disease) I25.10 Diabetes E11.9 Obesity E66.9 Hypertension I10
--- NOTE | 2022-03-10 05:32 | USCV_ITS ---
Jose Maria Figueroa Age: 66 Gender: M : 1955 Exam Date: 03/10/2022 10:31 Ordering Phys: Lawrence Monet MD Technologist: Cristopher Benoit Exam Location: [facility] [place] Indication: ? dvt PROCEDURES: The venous duplex Doppler examination of both lower extremities was performed in the standard fashion. The following venous structures were evaluated: common femoral vein, profunda vein, proximal portion of the greater saphenous vein, superficial femoral vein, and the popliteal vein. In addition, the posterior tibial and peroneal trunk were evaluated. FINDINGS: Normal 2-D Doppler and augmentation and compressibility throughout the lower extremity venous structures. Additional imaging through the proximal calf veins also reveals no thrombus. Limited evaluation of the greater saphenous vein is patent with no thrombus. The right leg is amputeed from mid thigh CONCLUSIONS No DVT bilateral lower extremities. Dr. Polly Jean-Baptiste DO (Electronically Signed) Final Date: 10 March 2022 14:06 S
--- NOTE | 2022-03-10 05:32 | CT_ITS ---
WS: [id number] CT CHEST ANGIOGRAPHY WITH REFORMATS HISTORY: hypoxia TECHNIQUE: Contiguous axial images are obtained through the chest during arterial injection of intrav enous contrast. Images are reconstructed to evaluate the pulmonary arteries. MIP imaging also reviewe d. All CT scans at [facility] use at least one of these dose optimization techniques: automat ed exposure control; mA and/or kV adjustment per patient size (includes targeted exams where dose is matched to clinical indication); or iterative reconstruction. CONTRAST: Omnipaque 350; 95 mL IV. DLP: 1185.62 mGy.cm COMPARISON: 03/09/2020 Limited opacification of the pulmonary arteries. Central opacification of the pulmonary arteries is g ood. No central emboli. Opacification becomes limited with artifact beginning in the lobar branches. Small peripheral emboli cannot be excluded. Atherosclerosis aorta. No aneurysm. Heart is normal size. There are several indeterminate and slightly enlarged lymph nodes. LEFT axillary lymph node measures 15 mm short axis diameter. RIGHT hilar lymph nodes measure up to 19 mm in diameter. Motion and breathing artifact obscuring lung detail. No large mass. RIGHT lower lobe opacification co nsistent with pneumonia. Very subtle area of decreased attenuation in the T5 vertebral body. CT/CT angio chest PE protcl [id number] IMPRESSION: 1. Quality of this examination is suboptimal. Centrally there is no pulmonary embolism. Distal peripheral emboli not excluded. There are a few areas of suspi cion for small emboli in the lower lobe pulmonary arteries. 2. RIGHT lower lobe pneumonia. Mildly improved since the prior study. 3. Indeterminate but mildly enlarged LEFT axillary and RIGHT hilar lymph nodes measuring up to 19 mm. May be reactive. 4. Subtle area of decreased attenuation in the T5 vertebral body. Could repres ent a very early metastatic lesion. Bone scan imaging may be helpful for clarif ication.
[2022-03-10 06:48] LABS: Alanine Aminotransferase 22 U/L (0-41); Albumin Level 3.8 g/dL (3.5-5.2); Alkaline Phosphatase 94 IU/L (40-130); Blood Urea Nitrogen 18 mg/dL (8-23); Carbon Dioxide 25 mmol/L (22-29); Chloride 94 mmol/L (98-107); Globulin 3.4 g/dL (1.3-4.6); Glomerular Filtration Rate 84.2 mL/min (90-130); Glucose 212 mg/dL (65-115); Osmolality Calculated 282 mOsm/kg (285-295); Sodium 132 mmol/L (136-145); Total Bilirubin 0.7 mg/dL (0.15-1.2); Total Protein 7.2 g/dL (6.6-8.7)
[2022-03-10 06:49] LABS: Lactate (Lactic Acid level) 1.3 mmol/L (0.5-2.2)
[2022-03-10 06:55] LABS: Anion Gap 17.8 (5-19); Aspartate Amino Transferase 25 U/L (0-40); Potassium 4.8 mmol/L (3.5-5.1)
[2022-03-10 08:54] LABS: Glucose Point of Care 231 mg/dL (70-110)
[2022-03-10] MEDS: tamsulosin 0.4 mg Capsule 0.8 MG PO (09:17)
[2022-03-10] MEDS: gabapentin 300 mg Capsule 600 MG PO ×3 (09:17→19:59)
[2022-03-10] MEDS: metoprolol tartrate 50 mg Tablet PO ×2 (09:17→17:25)
[2022-03-10] MEDS: magnesium oxide 400 mg tablet PO ×3 (09:17→19:59)
[2022-03-10] MEDS: piperacillin-tazobactam 3.375 GM in sodium chloride 0.9% (plus) 50 ML IV ×2 (09:19→17:08)
--- NOTE | 2022-03-10 10:37 | PC.CHAP ---
Pastoral Care Encounter/Spiritual Assessment Type of Contact [] Declined mattress spring encaser visit [] Patient/Family/Request visit [] Outpatient visit [] Follow-up visit [] Physician referral [] Code/Alert [x] Routine visit [] Staff referral [] Actively dying [] Patient sleeping [] Family support [] [] Out of room [] Palliative care [] [] Receiving care in room [] Pre-surgical visit [] Trauma [] Long length of stay [] ICU visit [] Other: Relational/Emotional Strength [] Patient feels connected with others/family/visitors/staff [] Distress [] Loneliness/isolation [] Abandonment Spirituality of Patient [x] Person of Ana [] Attends Anabaptism of their Ana [x] Believes in Prayer [] Reads Bible or Sikh materials [] There are Spiritual issues to be addressed Meat Cutting Block Repairer Interventions [x] Prayer [x] Active listening [x] Non-anxious presence [] Spiritual/emotional support [] Crisis/trauma care [] Spiritual counseling [] Bereavement support [] Provided bereavement packet [] Provided Bible/devotional materials [] Provided toy/stuffed animal, coloring book to patient or family member [] Provided Communion [] Anointing/[place] [] Salvation [x] Completed spiritual assessment [] Other: Impact on Illness or Injury [] Angry [] Fearful [] Anxious [] Often cries [] Exhaustion [] Unable to work [] Unable to attend confucianist [] Unable to walk/stand [] Unable to read [] Unable to drive [] Unable to eat/drink [] Unable to sleep [] Unable to be with family [] Patient intubated [] Other: Summary Time spent with patient 10 min
[2022-03-10] MEDS: perflutren protein-a microsphr 0.22 mg/mL SDV 3 mL IV (10:42)
[2022-03-10 11:11] LABS: Basophils % 0.3 %; Eosinophils # 0.2 10^3/uL (0.0-0.8); Eosinophils % 1.3 %; Hematocrit 41.6 % (42.0-52.0); Hemoglobin 13.9 g/dL (11.7-16.6); Lymphocytes # 2.1 10^3/uL (0.8-4.8); Lymphocytes % 15.2 %; Mean Corpuscular HGB Conc 33.4 g/dL (30.0-36.0); Mean Corpuscular Hemoglobin 28.7 pg (28.0-34.0); Mean Corpuscular Volume 85.8 fl (80-94); Mean Platelet Volume 11.3 fL (7.4-10.4); Monocytes # 1.1 10^3/uL (0.2-0.9); Monocytes % 8.2 %; Neutrophils # 10.07 10^3/uL (1.8-7.7); Neutrophils % 74.5 %; Nucleated Red Blood Cells % 0 %; Platelet Count 165 10^3/cmm (130-400); Red Blood Count 4.85 10^6/uL (4.1-5.3); Red Cell Distribution Width 13.2 % (12.1-15.1); White Blood Count 13.5 10^3/uL (4.0-10.0)
[2022-03-10 11:22] LABS: Estmated Average Glucose 232; Hemoglobin A1C 9.7 % (4.0-6.0)
[2022-03-10 12:28] LABS: Glucose Point of Care 258 mg/dL (70-110)
[2022-03-10] MEDS: insulin lispro 100 unit/1 mL SUBCUT ×2 (12:46→17:25)
[2022-03-10] MEDS: cyclobenzaprine 10 mg Tablet 5 MG PO (13:50)
[2022-03-10] MEDS: diphenhydrAMINE 50 mg/mL SDV 1mL 25 MG IVP (14:23)
[2022-03-10] MEDS: iohexol 350 mg/mL 100 mL Btl IV ×2 (15:15→15:16)
[2022-03-10 17:03] LABS: Glucose Point of Care 263 mg/dL (70-110)
[2022-03-10] MEDS: ipratropium-albuterol 3 mL Neb INHALATION (20:45)
[2022-03-10 21:45] LABS: Glucose Point of Care 349 mg/dL (70-110)
[2022-03-11] VITALS (11 sets, daily range): BP systolic 129–175; BP diastolic 69–88; PULSE 72–82; RESP 16–18; TEMP 36.5–36.9; O2SAT 91–99
[2022-03-11] MEDS: piperacillin-tazobactam 3.375 GM in sodium chloride 0.9% (plus) 50 ML IV ×3 (00:37→17:40)
[2022-03-11] MEDS: ipratropium-albuterol 3 mL Neb INHALATION ×3 (02:59→20:40)
[2022-03-11 05:36] LABS: Basophils % 0.3 %; Hematocrit 43.3 % (42.0-52.0); Hemoglobin 14.6 g/dL (11.7-16.6); Lymphocytes # 1.3 10^3/uL (0.8-4.8); Lymphocytes % 12.4 %; Mean Corpuscular HGB Conc 33.7 g/dL (30.0-36.0); Mean Corpuscular Hemoglobin 28.9 pg (28.0-34.0); Mean Corpuscular Volume 85.6 fl (80-94); Mean Platelet Volume 11.2 fL (7.4-10.4); Monocytes # 0.4 10^3/uL (0.2-0.9); Monocytes % 3.5 %; Neutrophils # 8.45 10^3/uL (1.8-7.7); Neutrophils % 83.2 %; Nucleated Red Blood Cells % 0 %; Platelet Count 175 10^3/cmm (130-400); Red Blood Count 5.06 10^6/uL (4.1-5.3); Red Cell Distribution Width 12.8 % (12.1-15.1); White Blood Count 10.2 10^3/uL (4.0-10.0)
[2022-03-11 05:53] LABS: Anion Gap 15.7 (5-19); Blood Urea Nitrogen 22 mg/dL (8-23); Calcium 9.6 mg/dL (8.5-10.5); Carbon Dioxide 27 mmol/L (22-29); Chloride 94 mmol/L (98-107); Glomerular Filtration Rate 84.2 mL/min (90-130); Glucose 354 mg/dL (65-115); Osmolality Calculated 292 mOsm/kg (285-295); Potassium 4.7 mmol/L (3.5-5.1); Sodium 132 mmol/L (136-145)
--- NOTE | 2022-03-11 06:31 | NM_ITS ---
WS: [id number] NUCLEAR MEDICINE BONE SCAN Radiopharmaceutical: 26.8 Tc-99m MDP mCi IV Injection site: Postinjection imaging delay: 1 hr CLINICAL INFORMATION: spine mets? COMPARISON: CTA chest March 10, 2022 FINDINGS: Bone lesions: There are no osseous lesions suspicious for metastatic disease. No abnormal activity in the T5 vertebral body. Soft tissue contours: Normal. Kidneys: Normal. Other findings: Degenerative type uptake in both AC joints and sternoclavicular joints. Anton cathete r. RIGHT [id number] amputation. Advanced degenerative uptake about the LEFT knee and ankle. NM/NM bone scan whole body* [id number] IMPRESSION: There are no osseous lesions suspicious for metastatic disease. No abnormal act ivity in the T5 vertebral body.
--- NOTE | 2022-03-11 06:32 | P.PN_ITS ---
Subjective Subjective: CTA showed distal PE Right lower lobe pneumonia Concern for mets, will request bone scan Patient is still spiking fever No fever in last 8 hours Leukocytosis improving Hyperglycemia Vitals/I&O/Wt Last Vital Signs Temp 98.4 F 03/11/22 04:00 Pulse 81 03/11/22 04:00 Resp 17 03/11/22 04:00 BP 158/83 03/11/22 04:00 Pulse Ox 96 03/11/22 04:00 03/10/22 03/10/22 03/11/22 14:59 22:59 06:59 Intake Total 780 / 780 540 / 1320 300 / 1620 Output Total 1500 / 1500 Balance 780 / 780 -960 / -180 300 / 120 Weight last 48 hrs Weight 142.972 kg Weight 138.346 kg Physical Exam Narrative: Obese male Currently on 5 L nasal cannula No acute respite distress No active chest pain Looks euvolemic Abdomen soft S1, S2 Rhonchi and crackles present at base of the lungs Nonfocal neuro exam Urinary Catheter Management: Anton: Cath Placed During This Visit: yes Reason for Continuing Indwelling Catheter: Acute Urinary Retention or Obstruction Urinary Catheter Date of Insertion: 03/09/22 Urinary Catheter Time of Insertion: 19:53 Data : 03/11/22 04:56 03/11/22 04:56 Micro: Microbiology 03/09/22 17:15 Blood Culture - Preliminary Blood NEGATIVE TO DATE 03/09/22 17:00 Blood Culture - Preliminary Blood NEGATIVE TO DATE 03/09/22 13:55 Gram Stain - Final Sputum - Expectorated Sputum 03/10/22 03:30 Bacterial Antigens - Final Urine,Voided 03/10/22 03:30 Legionella Urinary Antigen - Final Urine Catheterized A&P Assessment and plan (1) Sepsis: Status: Acute (2) Acute and chronic respiratory failure with hypoxia: Status: Acute (3) Community acquired pneumonia: Status: Acute (4) Hemiplegia affecting left nondominant side: Status: Acute (5) BPH (benign prostatic hyperplasia): Status: Acute (6) Above knee amputation of right lower extremity: Status: Acute (7) Hypertension: Status: Acute (8) Obesity: Status: Acute (9) Diabetes: Status: Acute (10) Chronic pain: Status: Acute (11) Hypothyroidism: Status: Acute (12) Back pain: Status: Acute (13) Pulmonary emboli: Status: Acute Plan Distal pulmonary embolism Start therapeutic Lovenox Acute hypoxic with sepsis secondary to community-acquired pneumonia I have escalated his antibiotics yesterday, will like to give him 48 hours to see optimal response On CTA chest there is mild evaluation of right lower lobe pneumonia Swollen lymph nodes, vertebral density noted on the CT scan, will obtain bone scan to rule out metastatic lesion Type 2 diabetes: Hyperglycemia, he was eating bradycardia with biscuits, diet Mountain Dew at the bedside provided by his son Adjust insulin dosage Preserved ejection fraction heart failure exacerbation Adequate diuresis, hold off on diuretics, Echo reviewed, preserved ejection fraction Full code Cardiac consistent carb diet DVT prophylaxis: Currently on therapeutic Lovenox Family updated Attestations Medical Necessity Statement*: Continue medical management Time Spent in Patient Care: 30 Coding Level of Care Code Acute Hackler Doll Wigs for [facility] Fwd Diagnoses Sepsis A41.9 Acute and chronic respiratory failure with hypoxia J96.21 Community acquired pneumonia J18.9 Hemiplegia affecting left nondominant side G81.94 BPH (benign prostatic hyperplasia) N40.0 Above knee amputation of right lower extremity S78.111A Hypertension I10 Obesity E66.9 Diabetes E11.9 Chronic pain G89.29 Hypothyroidism E03.9 Back pain M54.9 Pulmonary emboli I26.99
[2022-03-11 07:32] LABS: Vancomycin Trough 27.9 ug/mL (10-15)
[2022-03-11] MEDS: insulin lispro 100 unit/1 mL SUBCUT ×3 (07:55→17:41)
[2022-03-11] MEDS: enoxaparin 150 mg/mL Syringe 140 MG SUBCUT ×2 (08:01→20:27)
[2022-03-11] MEDS: tamsulosin 0.4 mg Capsule 0.8 MG PO (08:02)
[2022-03-11] MEDS: magnesium oxide 400 mg tablet PO ×3 (08:02→20:27)
[2022-03-11] MEDS: gabapentin 300 mg Capsule 600 MG PO ×3 (08:03→20:27)
[2022-03-11] MEDS: metoprolol tartrate 50 mg Tablet PO ×2 (08:03→17:42)
[2022-03-11 10:51] LABS: Glucose Point of Care 396 mg/dL (70-110)
[2022-03-11] MEDS: cyclobenzaprine 10 mg Tablet 5 MG PO ×2 (11:39→20:27)
[2022-03-11 17:18] LABS: Glucose Point of Care 298 mg/dL (70-110)
--- NOTE | 2022-03-11 18:44 | PC.NURSE ---
Patient AAOx4, VSS, continues to weep from BUE, frequent turns with blanchable erythrema to buttocks, patient is calm and cooperative. Family at bedside and is very helpful with turns and bed changes. Room is clean and clutter free with call light in reach. NO new events, will report to oncoming nurse at bedside at shift change.
[2022-03-11 21:41] LABS: Glucose Point of Care 386 mg/dL (70-110)
[2022-03-12] VITALS (8 sets, daily range): BP systolic 131–158; BP diastolic 64–71; PULSE 68–79; RESP 17–20; TEMP 36.4–36.9; O2SAT 88–96
[2022-03-12] MEDS: piperacillin-tazobactam 3.375 GM in sodium chloride 0.9% (plus) 50 ML IV ×2 (00:18→10:46)
[2022-03-12 05:01] LABS: Basophils # 0.1 10^3/uL (0.0-0.1); Basophils % 0.5 %; Eosinophils # 0.2 10^3/uL (0.0-0.8); Eosinophils % 1.7 %; Hematocrit 40.1 % (42.0-52.0); Hemoglobin 13.5 g/dL (11.7-16.6); Lymphocytes % 25.4 %; Mean Corpuscular HGB Conc 33.7 g/dL (30.0-36.0); Mean Corpuscular Hemoglobin 28.4 pg (28.0-34.0); Mean Corpuscular Volume 84.4 fl (80-94); Mean Platelet Volume 11.1 fL (7.4-10.4); Monocytes # 0.7 10^3/uL (0.2-0.9); Monocytes % 6.2 %; Neutrophils # 7.72 10^3/uL (1.8-7.7); Neutrophils % 65.7 %; Nucleated Red Blood Cells % 0 %; Platelet Count 220 10^3/cmm (130-400); Red Blood Count 4.75 10^6/uL (4.1-5.3); Red Cell Distribution Width 12.5 % (12.1-15.1); White Blood Count 11.8 10^3/uL (4.0-10.0)
[2022-03-12 05:14] LABS: Blood Urea Nitrogen 28 mg/dL (8-23); Carbon Dioxide 29 mmol/L (22-29); Chloride 95 mmol/L (98-107); Glomerular Filtration Rate 66.8 mL/min (90-130); Glucose 211 mg/dL (65-115); Osmolality Calculated 288 mOsm/kg (285-295); Sodium 133 mmol/L (136-145)
[2022-03-12 05:15] LABS: Anion Gap 12.7 (5-19); Potassium 3.7 mmol/L (3.5-5.1)
[2022-03-12] MEDS: enoxaparin 150 mg/mL Syringe 140 MG SUBCUT (06:20)
[2022-03-12 06:46] LABS: Glucose Point of Care 200 mg/dL (70-110)
[2022-03-12] MEDS: gabapentin 300 mg Capsule 600 MG PO (08:06)
[2022-03-12] MEDS: FUROsemide 10 mg/mL SDV 10mL 60 MG IVP (08:08)
[2022-03-12] MEDS: magnesium oxide 400 mg tablet PO (08:08)
[2022-03-12] MEDS: tamsulosin 0.4 mg Capsule 0.8 MG PO (08:08)
[2022-03-12] MEDS: metoprolol tartrate 50 mg Tablet PO (08:08)
[2022-03-12] MEDS: insulin lispro 100 unit/1 mL SUBCUT ×2 (08:09→11:52)
--- NOTE | 2022-03-12 09:26 | PC.SOCIAL ---
IMM update IMM updated with patient and family at bedside. Copy Pg 2 provided. Verbalized an understanding. Initialled, dated, timed, and placed in chart.
--- NOTE | 2022-03-12 10:08 | P.DS_ITS ---
Discharge Providers Date of Admission: 03/09/22 18:38 Date of Discharge: March 12, 2022 Attending Provider at Admission: Lawrence Monet MD Attending Provider at Discharge: Lawrence Monet MD Diagnoses at Discharge Discharge Diagnosis (1) Sepsis: Status: Acute (2) Acute and chronic respiratory failure with hypoxia: Status: Acute (3) Community acquired pneumonia: Status: Acute (4) Hemiplegia affecting left nondominant side: Status: Acute (5) BPH (benign prostatic hyperplasia): Status: Acute (6) Above knee amputation of right lower extremity: Status: Acute (7) Hypertension: Status: Acute (8) Obesity: Status: Acute (9) Diabetes: Status: Acute (10) Chronic pain: Status: Acute (11) Hypothyroidism: Status: Acute (12) Back pain: Status: Acute (13) Pulmonary emboli: Status: Acute Reason for Visit Reason for Visit: FEVER; SOB Hospital Course Hospital Course 66-year-old male who was admitted for management of community-acquired pneumonia, he is a diabetic, does not use oxygen at his retirement, he was put on ceftriaxone and azithromycin initially however his fever was not subsiding, he was diagnosed with sepsis on the day of admission, received limited fluid because of his CHF exacerbation as well, in fact I diuresed him that showed clinical improvement, after 24 hours I escalated his antibiotics to broad- spectrum because of his persistent fever, after 48 hours his fever subsided white count is still around 11,000, patient is clinically doing better, at this point he is on 2 L nasal cannula, CTA chest was requested because of high D- dimer which showed suspicion for distal PE I started him on therapeutic Lovenox and planning to discharge him on Eliquis 10 mg loading dose and then 5 mg daily no signs of DVT noted. Cultures remain negative. Bone scan did not show any metastatic lesion of his spine Family was updated Patient will be discharged back to his retirement on 10-day of antibiotic, loading dose of Eliquis, albuterol and budesonide He qualified for 2 L of oxygen at the time of discharge Physical Exam Narrative: Obese male Currently on 2 L nasal cannula No acute respite distress No active chest pain Looks euvolemic Abdomen soft S1, S2 Rhonchi and crackles present at base of the lungs Nonfocal neuro exam Urinary Catheter Management: Anton: Cath Placed During This Visit: yes Reason for Continuing Indwelling Catheter: Acute Urinary Retention or Obstruction Urinary Catheter Date of Insertion: 03/09/22 Urinary Catheter Time of Insertion: 19:53 Discharge Data Studies Completed and Pending Completed Studies During Hospitalization Category Date Time Status CT chest abdomen pelvis [[place] [id number] Cat Scan 03/09/22 16:13 Completed ] Stat CTA PE [CT angio chest PE protcl [id number]] Routine Cat Scan 03/10/22 05:32 Completed XR chest 1V portable [id number] Urgent Exams 03/09/22 15:33 Completed NM bone scan whole body* [id number] Routine Nuc Med 03/11/22 06:31 Completed CV. echo wo/w contrast [id number] Routine Ultrasound 03/10/22 04:37 Completed US venous duplex lower extremity bilat [CV venous Ultrasound 03/10/22 05:32 [place] [id number]] Routine Pending at discharge Category Date Time Status Blood Culture Stat Lab 03/09/22 17:15 Results Sputum Culture and Gram Stain Routine Lab 03/09/22 13:55 Results Radiology Impressions Chest X-Ray 03/09/22 15:33 IMPRESSION: Subtle ill-defined bibasilar opacities which may reflect atelectasis versus infiltrates. Chest/Abdomen/Pelvis CT 03/09/22 16:13 IMPRESSION: Right lower lobe pneumonia. IMPRESSION: Colonic constipation is present. Chest CTA 03/10/22 05:32 IMPRESSION: 1. Quality of this examination is suboptimal. Centrally there is no pulmonary embolism. Distal peripheral emboli not excluded. There are a few areas of suspicion for small emboli in the lower lobe pulmonary arteries. 2. RIGHT lower lobe pneumonia. Mildly improved since the prior study. 3. Indeterminate but mildly enlarged LEFT axillary and RIGHT hilar lymph nodes measuring up to 19 mm. May be reactive. 4. Subtle area of decreased attenuation in the T5 vertebral body. Could represent a very early metastatic lesion. Bone scan imaging may be helpful for clarification. Bone Scan Nuclear Medicine 03/11/22 06:31 IMPRESSION: There are no osseous lesions suspicious for metastatic disease. No abnormal activity in the T5 vertebral body. Laboratory Results WBC 11.8 10^3/uL (4.0-10.0) H 03/12/22 04:14 Corrected WBC Cancelled 03/10/22 06:00 RBC 4.75 10^6/uL (4.1-5.3) 03/12/22 04:14 Hgb 13.5 g/dL (11.7-16.6) 03/12/22 04:14 Hct 40.1 % (42.0-52.0) L 03/12/22 04:14 MCV 84.4 fl (80-94) 03/12/22 04:14 MCH 28.4 pg (28.0-34.0) 03/12/22 04:14 MCHC 33.7 g/dL (30.0-36.0) 03/12/22 04:14 RDW 12.5 % (12.1-15.1) 03/12/22 04:14 Plt Count 220 10^3/cmm (130-400) 03/12/22 04:14 MPV 11.1 fL (7.4-10.4) H 03/12/22 04:14 Gran % Cancelled 03/10/22 06:00 Neut % (Auto) 65.7 % 03/12/22 04:14 Lymph % (Auto) 25.4 % 03/12/22 04:14 [place] % (Auto) 6.2 % 03/12/22 04:14 Eos % (Auto) 1.7 % 03/12/22 04:14 Baso % (Auto) 0.5 % 03/12/22 04:14 Neut # (Auto) 7.72 10^3/uL (1.8-7.7) H 03/12/22 04:14 Lymph # (Auto) 3.0 10^3/uL (0.8-4.8) 03/12/22 04:14 [place] # (Auto) 0.7 10^3/uL (0.2-0.9) 03/12/22 04:14 Eos # (Auto) 0.2 10^3/uL (0.0-0.8) 03/12/22 04:14 Baso # (Auto) 0.1 10^3/uL (0.0-0.1) 03/12/22 04:14 Absolute Gran (auto) Cancelled 03/10/22 06:00 Nucleated RBC % (auto) 0 % 03/12/22 04:14 Nucleated RBCs # 0.0 /100WBC 03/12/22 04:14 D-Dimer 0.82 ug/mIFEU (0-0.59) H 03/09/22 16:19 Specimen Type Arterial 03/09/22 15:58 Sample Site Radial, left 03/09/22 15:58 ABG pH 7.50 (7.35-7.45) H 03/09/22 15:58 ABG pCO2 35.2 mmHg (35-45) 03/09/22 15:58 ABG pO2 63.4 mmHg (80.0-100.0) L 03/09/22 15:58 ABG HCO3 27.5 mmol/L (22-26) H 03/09/22 15:58 ABG Base Excess 4.5 mmol/L (-2.0-2.0) H 03/09/22 15:58 Kuldeep Test Pos 03/09/22 15:58 Hematocrit 45.5 % (42-52) 03/09/22 15:58 O2 Delivery Device Nc 03/09/22 15:58 O2 Liters/Min 4.0 % 03/09/22 15:58 FiO2 36.0 % 03/09/22 15:58 Parking Lot Spotter ID Cak 03/09/22 15:58 Sodium 133 mmol/L (136-145) L 03/12/22 04:14 Potassium 3.7 mmol/L (3.5-5.1) 03/12/22 04:14 Chloride 95 mmol/L (98-107) L 03/12/22 04:14 Carbon Dioxide 29 mmol/L (22-29) 03/12/22 04:14 Anion Gap 12.7 (5-19) 03/12/22 04:14 BUN 28 mg/dL (8-23) H 03/12/22 04:14 Creatinine 1.1 mg/dL (0.7-1.2) 03/12/22 04:14 GFR Calculation 66.8 mL/min (90-130) L 03/12/22 04:14 Glucose 211 mg/dL (65-115) H 03/12/22 04:14 POC Glucose 200 mg/dL (70-110) H 03/12/22 06:28 Estimat Average Glucose 232 03/10/22 10:22 Hemoglobin A1c 9.7 % (4.0-6.0) H 03/10/22 10:22 Calculated Osmolality 288 mOsm/kg (285-295) 03/12/22 04:14 Lactic Acid 1.8 mmol/L (0.5-2.2) 03/09/22 17:28 Lactate 1.3 mmol/L (0.5-2.2) 03/10/22 06:00 Calcium 9.0 mg/dL (8.5-10.5) 03/12/22 04:14 Total Bilirubin 0.7 mg/dL (0.15-1.2) 03/10/22 06:00 AST 25 U/L (0-40) 03/10/22 06:00 ALT 22 U/L (0-41) 03/10/22 06:00 Alkaline Phosphatase 94 IU/L (40-130) 03/10/22 06:00 Troponin T Baseline 28 ng/L (0-15) H 03/09/22 17:28 Troponin T 120 Minute 25.30 ng/L (0-15) H 03/09/22 20:30 Delta Troponin T -2.70 ABS# (0-10) L 03/09/22 20:30 Troponin T Hi Sens 6Hr 26.50 ng/L (0-15) H 03/09/22 23:15 Troponin T Hi Sens 6Hr Delta -1.50 ng/L (0-12) L 03/09/22 23:15 C-Reactive Protein 179.4 mg/L (0.0-4.9) H 03/09/22 17:28 NT-Pro-B Natriuret Pep 289 pg/mL (0-125) H 03/09/22 17:28 Total Protein 7.2 g/dL (6.6-8.7) 03/10/22 06:00 Albumin 3.8 g/dL (3.5-5.2) 03/10/22 06:00 Globulin 3.4 g/dL (1.3-4.6) 03/10/22 06:00 Procalcitonin 0.24 ng/mL (0-0.5) 03/09/22 17:28 TSH 0.59 uIU/mL (0.27-4.20) 03/09/22 17:28 Urine Color Yellow (Yellow) 03/09/22 17:50 Urine Appearance Clear (CLEAR) 03/09/22 17:50 Urine pH 6.5 (5-7) 03/09/22 17:50 Ur Specific [place] 1.010 (1.005-1.030) 03/09/22 17:50 Urine Protein Neg (Negative) 03/09/22 17:50 Urine Glucose (UA) 2+ (Normal) H 03/09/22 17:50 Urine Ketones Negative (Negative) 03/09/22 17:50 Urine Blood Neg (Negative) 03/09/22 17:50 Urine Nitrate Negative (Negative) 03/09/22 17:50 Urine Bilirubin Neg (Negative) 03/09/22 17:50 Urine Urobilinogen Norm mg/dL (Negative) 03/09/22 17:50 Ur Leukocyte Esterase Negative (Negative) 03/09/22 17:50 Vancomycin Trough 27.9 ug/mL (10-15) H* 03/11/22 07:00 Coronavirus 229E (PCR) Not detected (NOT DETECT) 03/09/22 16:00 SARS-CoV-2 (PCR) Not detected (NOT DETECT) 03/09/22 16:00 Vitals Last Vital Signs Temp 98.1 F 03/12/22 08:00 Pulse 74 03/12/22 08:00 Resp 18 03/12/22 08:00 BP 132/71 03/12/22 08:00 Pulse Ox 88 L 03/12/22 09:08 Discharge Plan Discharge Patient Disposition: Xfer [facility] Condition: Stable Prescriptions: New Eliquis 5 mg tablet 5 mg PO BID Qty: 120 6RF levofloxacin 750 mg tablet 750 mg PO DAILY 10 Days Qty: 10 0RF albuterol sulfate 90 mcg/actuation HFA aerosol inhaler 2 inh inhalation Q8H PRN (Reason: shortness of breath or wheezing) Qty: 8.5 4RF Pulmicort Flexhaler 90 mcg/actuation aerosol powdr breath activated 2 inh inhalation BID PRN (Reason: wheezing) Qty: 1 0RF Continued atorvastatin 40 mg Tablet 40 mg PO BEDTIME 0RF metformin 500 mg Tablet 500 mg PO BID 0RF acetaminophen 325 mg Tablet 650 mg PO Q4H PRN (Reason: Pain) 0RF gabapentin 600 mg Tablet 600 mg PO TID 0RF trazodone 50 mg Tablet 50 mg PO BEDTIME 0RF miconazole nitrate 2 % Cream 1 applic TOPICAL Q8H PRN (Reason: yeast) 0RF miconazole nitrate 2 % Cream 1 applic TOPICAL BID 0RF alprazolam 1 mg Tablet 0.5 mg PO BEDTIME 0RF hydrocodone-acetaminophen 5-325 mg Tablet 1 tab PO Q8H PRN (Reason: Pain) 0RF clopidogrel 75 mg Tablet 75 mg PO DAILY 0RF Milk of Magnesia 400 mg/5 mL Suspension 30 ml PO DAILY PRN (Reason: Constipation) 0RF tamsulosin 0.4 mg Capsule 0.8 mg PO DAILY 0RF baclofen 10 mg Tablet 10 mg PO TID 0RF Novolog U-100 Insulin aspart 100 unit/mL Solution See Rx Instructions .ROUTE .COMPLEX 0RF Rx Instructions: 36 unit subcutaneously before meals and per SLIDING SCALE levothyroxine 50 mcg Tablet 50 mcg PO DAILY 0RF bisacodyl 10 mg Suppository 10 mg MA DAILY PRN (Reason: Constipation) 0RF pantoprazole 40 mg Tablet,Delayed Release (Dr/Ec) 40 mg PO DAILY 0RF metoprolol tartrate 50 mg Tablet 50 mg PO BID 0RF Enema 19-7 gram/118 mL Enema 118 ml MA DAILY PRN (Reason: Constipation) 0RF carbamide peroxide 6.5 % Drops 5 drp OTIC (EAR) DAILY PRN (Reason: Wax Removal) 0RF Rx Instructions: both ears docusate sodium 100 mg Capsule 100 mg PO DAILY 0RF ammonium lactate 12 % Cream 1 applic TOPICAL BID PRN (Reason: skin integrity) 0RF bisacodyl 5 mg Tablet,Delayed Release (Dr/Ec) 20 mg PO DAILY PRN (Reason: Constipation) 0RF Lasix 20 mg Tablet 20 mg PO DAILY 0RF ibuprofen 600 mg Tablet 600 mg PO Q6H PRN (Reason: Pain) 0RF Vitamin D3 10 mcg (400 unit) Capsule 20 mcg PO DAILY 0RF Lexapro 20 mg Tablet 20 mg PO DAILY 0RF Levemir U-100 Insulin 100 unit/mL Solution 84 unit SUBCUT BID 0RF Vascepa 1 gram Capsule 2 g PO BID 0RF Biofreeze (menthol) 4 % Gel 1 applic TOPICAL Q4H PRN (Reason: Pain) 0RF Bydureon BCise 2 mg/0.85 mL Auto-Injector 2 mg SUBCUT Q7D 0RF Rx Instructions: Every Thursday magnesium oxide 400 mg magnesium Tablet 400 mg PO TID 0RF Discontinued aspirin 81 mg Tablet,Chewable 81 mg PO DAILY 0RF Discharge Orders: Discharge Order (Routine); Ordered 03/12/22 Ordered By: Lawrence Monet Referrals: [facility] [Outside] Koko Treviño,Jose Daniel Maria, DO [Non-Staff] - Discharge Diet: Diabetic Discharge Activity: Use walker/crutches as instructed Patient Instructions: Pulmonary Embolism (DC) Activity Restrictions/Additional Instructions: You will take 10 mg of Eliquis for 7 days and then 5 mg twice daily for at least 6 to 9 months and then you will need another evaluation by your PCP for continuation of Eliquis This most likely is provoked pulmonary embolism secondary to sedentary lifestyle Hopefully your oxygen requirement will improve and you will come back on room air within 3 to 6 months Discharge Attestations Time Spent in Discharge Care*: less than 30 min Quality Metrics Clinical Quality Measures [ No reported AMI, CVA or VTE this stay] Coding Level of Care Code Acute Chg FW DC note Diagnoses Sepsis A41.9 Acute and chronic respiratory failure with hypoxia J96.21 Community acquired pneumonia J18.9 Hemiplegia affecting left nondominant side G81.94 BPH (benign prostatic hyperplasia) N40.0 Above knee amputation of right lower extremity S78.111A Hypertension I10 Obesity E66.9 Diabetes E11.9 Chronic pain G89.29 Hypothyroidism E03.9 Back pain M54.9 Pulmonary emboli I26.99
[2022-03-12] MEDS: cyclobenzaprine 10 mg Tablet 5 MG PO (10:14)
[2022-03-12] MEDS: miconazole 2% topical cream 28 gm 1 APPLIC TOPICAL (10:45)
[2022-03-12 11:55] LABS: Glucose Point of Care 250 mg/dL (70-110)
[2022-03-12] MEDS: Fleet Enema 133 mL Enema 118 ML PR (13:13)
== END 2022-03-12 16:00 | disposition skilled nursing facility (03) | DRG 193 ==
LOC: ER 19:28 → MEDSURG 20:16
PROVIDERS: Emergency Medicine; Admitting Provider Internal Medicine; Emergency Provider Emergency Medicine; Visit Provider Internal Medicine
DX: J18.9 Pneumonia, unspecified organism (principal); I50.33 Acute on chronic diastolic (congestive) heart failure; J96.21 Acute and chronic respiratory failure with hypoxia; I26.99 Other pulmonary embolism without acute cor pulmonale; I69.354 Hemiplegia and hemiparesis following cerebral infarction affecting left non-dominant side; Z68.41 Body mass index [BMI] 40.0-44.9, adult; I11.0 Hypertensive heart disease with heart failure; E11.65 Type 2 diabetes mellitus with hyperglycemia; Z79.4 Long term (current) use of insulin; Z79.84 Long term (current) use of oral hypoglycemic drugs; I25.10 Atherosclerotic heart disease of native coronary artery without angina pectoris; Z79.82 Long term (current) use of aspirin; I69.311 Memory deficit following cerebral infarction; K21.9 Gastro-esophageal reflux disease without esophagitis; M54.9 Dorsalgia, unspecified; G89.29 Other chronic pain; N40.0 Benign prostatic hyperplasia without lower urinary tract symptoms; Z89.611 Acquired absence of right leg above knee; E66.9 Obesity, unspecified
CPT/HCPCS: 36415; 36416; 36600; 51702; 71045; 71250; 71275; 74176; 78306; 80048; 80053; 80202; 81003; 82803; 82962; 83036; 83605; 83880; 84145; 84443; 84484; 85025; 85378; 86140; 86403; 87040; 87070; 87205; 87449; 87635; 93005; 93970; 94640; 94664; 96365; 96366; 96367; 96372; 99285; A9561; C8929; J0696; J1200; J1650; J1815; J1940; J2543; J2930; J3370; J3490; J7050; Q9956; Q9967

== ENCOUNTER 2022-08-02 02:05 | Inpatient (IN) | payer MEDICARE, MEDICAID, SELFPAY ==
[2022-08-02] VITALS (19 sets, daily range): BP systolic 136–187; BP diastolic 68–98; PULSE 88–118; RESP 15–22; TEMP 36.8–39.3; O2SAT 87–94; BMI 39.5; BMI 41.6
--- NOTE | 2022-08-02 02:22 | XRR_ITS ---
PROCEDURE INFORMATION: Exam: XR Chest Exam date and time: 08/02/2022 3:37 AM Age: 66 years old Clinical indication: Shortness of breath; Additional info: SOB TECHNIQUE: Imaging protocol: Radiologic exam of the chest. Views: 1 view. COMPARISON: [place] [id number] 03/09/2022 6:12 PM FINDINGS: Tubes, catheters and devices: EKG monitoring leads overlie the thoracic wall. Lungs: There is incomplete lung expansion and crowding of the vascular markings. There is mild perihilar interstitial prominence. There are bibasilar nonspecific confluent opacities. Pleural spaces: No visualized pleural effusion or pneumothorax. Heart/Mediastinum: The heart is mildly enlarged.. Bones/joints: No acute fracture is identified. XR/XR chest 1V portable [id number] IMPRESSION: Incomplete lung expansion and crowding of the bronchovascular markings. These pulmonary findings may be secondary to predominantly interstitial edema. Infectious or inflammatory pneumonitis (atypical infection) may present a similar picture.
[2022-08-02 03:35] LABS: Basophils # 0.1 10^3/uL (0.0-0.1); Basophils % 0.5 %; Eosinophils # 0.5 10^3/uL (0.0-0.8); Hematocrit 43.6 % (42.0-52.0); Hemoglobin 14.3 g/dL (11.7-16.6); Lymphocytes # 2.3 10^3/uL (0.8-4.8); Mean Corpuscular HGB Conc 32.8 g/dL (30.0-36.0); Mean Corpuscular Hemoglobin 28.4 pg (28.0-34.0); Mean Corpuscular Volume 86.7 fl (80-94); Mean Platelet Volume 10.3 fL (7.4-10.4); Monocytes # 1.1 10^3/uL (0.2-0.9); Monocytes % 10.2 %; Neutrophils # 6.55 10^3/uL (1.8-7.7); Neutrophils % 61.4 %; Nucleated Red Blood Cells % 0 %; Platelet Count 246 10^3/cmm (130-400); Red Blood Count 5.03 10^6/uL (4.1-5.3); White Blood Count 10.7 10^3/uL (4.0-10.0)
--- NOTE | 2022-08-02 03:37 | ECG_ITS ---
[facility] Test Date: 2022-08-02 Pat Name: Jose Mraia Figueroa Department: Room: Gender: Male Home Visits Nurse: : [id number] Requested By: Javi Whalen Order Number: [id number] Santiago MD: Pasquale Gardner M.D. Measurements Intervals [place] Rate: 105 P: 62 RI: 164 QRS: -34 QRSD: 117 T: 60 QT: 350 QTc: 463 Interpretive Statements SINUS TACHYCARDIA LEFT AXIS DEVIATION [QRS AXIS < -30] MODERATE INTRAVENTRICULAR CONDUCTION DELAY [110+ ms QRS DURATION] Compared to ECG 03/09/2022 21:24:59 No significant changes Electronically Signed On 08-04-2022 18:24:39 [employer] by Pasquale Gardner M.D. [id number]
[2022-08-02] MEDS: ipratropium-albuterol 3 mL Neb INHALATION ×4 (03:45→20:12)
[2022-08-02 03:50] LABS: Lactic Sepsis W/Reflex 1.5 mmol/L (0.5-2.2)
[2022-08-02 04:01] LABS: Alanine Aminotransferase 19 U/L (0-41); Albumin Level 3.4 g/dL (3.5-5.2); Alkaline Phosphatase 115 U/L (40-130); Anion Gap 13.9 (5-19); Aspartate Amino Transferase 19 U/L (0-40); Blood Urea Nitrogen 20 mg/dL (8-23); Calcium 9.6 mg/dL (8.5-10.5); Carbon Dioxide 30 mmol/L (22-29); Chloride 89 mmol/L (98-107); Globulin 4.6 g/dL (1.3-4.6); Glomerular Filtration Rate 74.5 mL/min (90-130); Glucose 168 mg/dL (65-115); NT Pro B Type Natriuretic Pept 148 pg/mL (0-125); Osmolality Calculated 274 mOsm/kg (285-295); Potassium 3.9 mmol/L (3.5-5.1); Sodium 129 mmol/L (136-145); Total Bilirubin 0.4 mg/dL (0.15-1.2)
[2022-08-02] MEDS: cefTRIAXone 1,000 MG in sodium chloride 0.9% (plus) 50 ML 100 MG IV (04:10)
[2022-08-02 04:11] LABS: ABG PCO2 47.2 mmHg (35-45); ABG PH Result 7.41 (7.35-7.45); Arterial Blood Gas Hematocrit 41.4 % (42-52); Base Excess ABG 4.4 mmol/L (-2.0-2.0); Blood Gas Allen Test Pos; Blood Gas Sample Site Radial, left; Blood Gas Sample Type Arterial; Carboxyhemoglobin 2.1 %THgb (0.4-20.1); HCO3 ABG 29.9 mmol/L (22-26); HGB O2 Sat 88.6 % (95-100); Methemoglobin 0.4 % (0.4-1.5); Oxygen Device NC; PO2 ABG 56.9 mmHg (80.0-100.0); Total Hemoglobin 13.5 g/dL (14-18)
--- NOTE | 2022-08-02 05:59 | ED_ITS ---
HPI - SOB/Dyspnea General: Chief Complaint: Shortness of Breath/Dyspnea Stated Complaint: SOB Time Seen by Provider: 08/02/22 03:05 Source: patient and EMS History of Present Illness: HPI Narrative: 66-year-old [place] [facility] patient presenting with shortness of breath. Evidently saturations were low in the [place] [facility]. He says that he has been coughing. MD elicited complaint: shortness of breath and cough Pertinent past history: other Timing: constant Severity: moderate Exacerbating factors: lying flat and exertion Relieving factors: oxygen Associated symptoms: Reports chest congestion, cough, fever(s) and nausea; Deny abdominal pain, chest pain or vomiting Review of Systems Const: Reports: fever(s) Card: Denies: chest pain Resp: Reports: dyspnea, productive cough and chest congestion GI: Reports: nausea; Denies: abdominal pain or vomiting PFSH ED PFSH: Medical History Above knee amputation of right lower extremity Back pain BPH (benign prostatic hyperplasia) CAD (coronary artery disease) Chronic pain Diabetes GERD (gastroesophageal reflux disease) Hemiplegia affecting left nondominant side Hyperlipidemia Hypertension Hypothyroidism Obesity Stroke Surgical History Hx of AKA (above knee amputation) Social History Lives independently: No Housing: Assisted Physical Exam Const: GENERAL APPEARANCE: cooperative ORIENTATION/CONSCIOUSNESS: Yes awake HENMT: COMMON NORMALS: normocephalic, atraumatic and Normal external nose present HEAD & SCALP: normocephalic and atraumatic FACE & SINUS: normal facial exam and face symmetric NOSE: Normal external nose present Eye: COMMON NORMALS: Equal, round and reactive pupils present and EOMs intact bilaterally PUPIL: Yes Equal, round and reactive pupils present Chest: CHEST: Yes Symmetrical chest wall rise Resp: EFFORT & INSPECTION: Yes tachypneic and No respiratory distress AUSCULTATION: diminished lung sounds Cardio: COMMON NORMALS: regular rate and regular rhythm RATE: regular rate RHYTHM: regular rhythm GI: COMMON NORMALS: Normal to inspection, nondistended, normoactive bowel sounds present and Soft to palpation PALPATION: Yes Soft to palpation Extremity: GENERAL: Yes edema Neuro: KATE COMA SCALE: document GCS findings [place] coma scale eye opening: Spontaneous [place] coma scale verbal response: Orientated Kate coma scale motor response: Obey commands Kate coma scale total score: 15 Psych: COMMON NORMALS: cooperative Skin: GENERAL SKIN EXAM: no ecchymo Course Vital Signs: Vital signs: Vital Signs Temperature 100.5 F H 08/02/22 02:08 Pulse Rate 107 H 08/02/22 05:08 Respiratory Rate 21 H 08/02/22 05:08 Blood Pressure 145/81 08/02/22 05:08 Pulse Oximetry 91 08/02/22 05:08 Oxygen Delivery Me thod 08/02/22 05:08 Oxygen Flow Rate 2 08/02/22 05:08 MDM - SOB/Dyspnea Medical Decision Making 66-year-old male with shortness of breath. X-ray reveals interstitial edema ve rsus pneumonitis or atypical infection. White cell count is 10.7 he does have a fever. Lactic is 1.5. BNP is only 148. He is received antibiotics after blood cultures. He will be admitted for hypoxic respiratory failure and pneumonia. Lab Data 08/02/22 02:33 08/02/22 02:33 Labs/Radiology: Radiology Impressions Chest X-Ray 08/02/22 02:22 IMPRESSION: Incomplete lung expansion and crowding of the bronchovascular markings. These pulmonary findings may be secondary to predominantly interstitial edema. Infectious or inflammatory pneumonitis (atypical infection) may present a similar picture. Laboratory Results WBC 10.7 10^3/uL (4.0-10.0) H 08/02/22 02:33 RBC 5.03 10^6/uL (4.1-5.3) 08/02/22 02:33 Hgb 14.3 g/dL (11.7-16.6) 08/02/22 02:33 Hct 43.6 % (42.0-52.0) 08/02/22 02:33 MCV 86.7 fl (80-94) 08/02/22 02:33 MCH 28.4 pg (28.0-34.0) 08/02/22 02:33 MCHC 32.8 g/dL (30.0-36.0) 08/02/22 02:33 RDW 13.0 % (12.1-15.1) 08/02/22 02:33 Plt Count 246 10^3/cmm (130-400) 08/02/22 02:33 MPV 10.3 fL (7.4-10.4) 08/02/22 02:33 Neut % (Auto) 61.4 % 08/02/22 02:33 Lymph % (Auto) 22.0 % 08/02/22 02:33 [place] % (Auto) 10.2 % 08/02/22 02:33 Eos % (Auto) 5.0 % 08/02/22 02:33 Baso % (Auto) 0.5 % 08/02/22 02:33 Neut # (Auto) 6.55 10^3/uL (1.8-7.7) 08/02/22 02:33 Lymph # (Auto) 2.3 10^3/uL (0.8-4.8) 08/02/22 02:33 [place] # (Auto) 1.1 10^3/uL (0.2-0.9) H 08/02/22 02:33 Eos # (Auto) 0.5 10^3/uL (0.0-0.8) 08/02/22 02:33 Baso # (Auto) 0.1 10^3/uL (0.0-0.1) 08/02/22 02:33 Nucleated RBC % (auto) 0 % 08/02/22 02:33 Nucleated RBCs # 0.0 /100WBC 08/02/22 02:33 Specimen Type Arterial 08/02/22 03:48 Sample Site Radial, left 08/02/22 03:48 ABG pH 7.41 (7.35-7.45) 08/02/22 03:48 ABG pCO2 47.2 mmHg (35-45) H 08/02/22 03:48 ABG pO2 56.9 mmHg (80.0-100.0) L 08/02/22 03:48 ABG HCO3 29.9 mmol/L (22-26) H 08/02/22 03:48 ABG Base Excess 4.4 mmol/L (-2.0-2.0) H 08/02/22 03:48 Kuldeep Test Pos 08/02/22 03:48 Hematocrit 41.4 % (42-52) L 08/02/22 03:48 Hgb O2 Saturation 88.6 % (95-100) L 08/02/22 03:48 Carboxyhemoglobin 2.1 %THgb (0.4-20.1) 08/02/22 03:48 Methemoglobin 0.4 % (0.4-1.5) 08/02/22 03:48 Total Hemoglobin 13.5 g/dL (14-18) L 08/02/22 03:48 O2 Delivery Device Nc 08/02/22 03:48 O2 Liters/Min 2.0 % 08/02/22 03:48 Water Filterer ID [email or web address] 08/02/22 03:48 Sodium 129 mmol/L (136-145) L 08/02/22 02:33 Potassium 3.9 mmol/L (3.5-5.1) 08/02/22 02:33 Chloride 89 mmol/L (98-107) L 08/02/22 02:33 Carbon Dioxide 30 mmol/L (22-29) H 08/02/22 02:33 Anion Gap 13.9 (5-19) 08/02/22 02:33 BUN 20 mg/dL (8-23) 08/02/22 02:33 Creatinine 1.0 mg/dL (0.7-1.2) 08/02/22 02:33 GFR Calculation 74.5 mL/min (90-130) L 08/02/22 02:33 Glucose 168 mg/dL (65-115) H 08/02/22 02:33 Calculated Osmolality 274 mOsm/kg (285-295) L 08/02/22 02:33 Lactic Acid 1.5 mmol/L (0.5-2.2) 08/02/22 02:33 Calcium 9.6 mg/dL (8.5-10.5) 08/02/22 02:33 Total Bilirubin 0.4 mg/dL (0.15-1.2) 08/02/22 02:33 AST 19 U/L (0-40) 08/02/22 02:33 ALT 19 U/L (0-41) 08/02/22 02:33 Alkaline Phosphatase 115 U/L (40-130) 08/02/22 02:33 NT-Pro-B Natriuret Pep 148 pg/mL (0-125) H 08/02/22 02:33 Total Protein 8.0 g/dL (6.6-8.7) 08/02/22 02:33 Albumin 3.4 g/dL (3.5-5.2) L 08/02/22 02:33 Globulin 4.6 g/dL (1.3-4.6) 08/02/22 02:33 Discharge Plan Discharge Patient Disposition: Admitted As Inpatient Admit Provider: Viviana Tyson Clinical Impression: Community acquired pneumonia, Acute and chronic respiratory failure with hypoxia Condition: Stable Coding Level of Care Code ED Bilingual Executive Assistant for Jose Manuelg Arvind
--- NOTE | 2022-08-02 06:44 | PC.NURSE ---
Patient is up to floor, admission assessment is complete at this time.
[2022-08-02 07:02] LABS: Glucose Point of Care 182 mg/dL (70-110)
--- NOTE | 2022-08-02 08:22 | CTR_ITS ---
PROCEDURE INFORMATION: Exam: CT Chest Without Contrast; Diagnostic Exam date and time: 08/02/2022 11:36 AM Age: 66 years old Clinical indication: Shortness of breath; Additional info: Pna TECHNIQUE: Imaging protocol: Diagnostic computed tomography of the chest without contrast. Total images: 271 Radiation optimization: All CT scans at this facility use at least one of these dose optimization techniques: automated exposure control; mA and/or kV adjustment per patient size (includes targeted exams where dose is matched to clinical indication); or iterative reconstruction. COMPARISON: [place] [id number] 03/09/2022 6:12 PM RADIATION DOSE METRICS: Total DLP (mGy-cm): 740.93 FINDINGS: Tubes, catheters and devices: Atrial septal occlusion device noted. Lungs: Nonspecific opacity in the right lung base, favoring atelectasis or pneumonia. Mild opacity posteriorly in the left lower lobe felt to represent dependent atelectasis. Pleural spaces: Unremarkable. No pneumothorax. No pleural effusion. Heart: Moderate coronary arterial calcification, indicating the presence of coronary artery disease. Lymph nodes: Mildly prominent left axillary lymph nodes with 2 showing a rounded appearance and having a short axis diameter of 12 mm these have slightly increased in size since prior exam and most likely represent reactive adenopathy. Numerous mildly prominent mediastinal lymph nodes felt to be reactive. Vasculature: Unremarkable. No aortic aneurysm. Gallbladder and bile ducts: Prior cholecystectomy noted. Bones/joints: Unremarkable. No acute fracture. Soft tissues: Unremarkable. CT/CT chest wo con [id number] IMPRESSION: 1. Nonspecific opacity in the right lung base, favoring atelectasis or pneumonia. 2. Numerous mildly prominent mediastinal lymph nodes felt to be reactive. This finding is stable when compared to the prior exam. 3. Moderate coronary arterial calcification, indicating the presence of coronary artery disease. If the patient has associated symptoms recommend management as per chest pain guidelines. If the patient is asymptomatic consider reviewing madifiable cardiovascular risk factors and managing as per guidelines for primary prevention. 4. Mildly prominent left axillary lymph nodes with 2 showing a rounded appearance and having a short axis diameter of 12 mm these have slightly increased in size since prior exam and most likely represent reactive adenopathy.
[2022-08-02 09:13] LABS: Procalcitonin 0.12 ng/mL (0-0.5); Vitamin B12 494 pg/mL (232-1245)
[2022-08-02 09:24] LABS: Iron 28 ug/dL (59-158); Percent Saturation 12.1 % (20-50); Total Iron Binding Capacity 230 mcg/dl; Unsaturated Iron Binding 202 ug/dL (112-347)
[2022-08-02] MEDS: escitalopram 10 mg Tablet 20 MG PO (09:31)
[2022-08-02] MEDS: tamsulosin 0.4 mg Capsule 0.8 MG PO (09:32)
[2022-08-02] MEDS: metoprolol tartrate 50 mg Tablet PO ×2 (09:32→17:53)
[2022-08-02] MEDS: apixaban 5 mg Tablet PO ×2 (09:32→17:53)
[2022-08-02] MEDS: docusate sodium 100 mg Capsule PO (09:32)
[2022-08-02] MEDS: gabapentin 300 mg Capsule 600 MG PO ×3 (09:32→21:01)
[2022-08-02] MEDS: pantoprazole DR 40 mg Tablet PO (09:32)
[2022-08-02] MEDS: clopidogrel 75 mg Tablet PO (09:32)
[2022-08-02] MEDS: FUROsemide 20 mg Tablet PO (09:32)
[2022-08-02] MEDS: levothyroxine 50 mcg Tablet PO (09:32)
[2022-08-02] MEDS: piperacillin-tazobactam 3.375 GM in sodium chloride 0.9% (plus) 50 ML IV ×2 (09:33→18:11)
[2022-08-02 10:05] LABS: Folate Level 10.1 ng/mL (4.5-32.2)
[2022-08-02 10:05] LABS: Add Urine Microscopic? YES; Bilirubin Urine 1+ (Negative); Blood Urine Neg (Negative); Glucose Urine UA Norm (Normal); Ketones Urine Negative (Negative); Leukocyte Esterase Urine Negative (Negative); Nitrate Urine Negative (Negative); Protein Urine Trace (Negative); Specific Gravity, Urine 1.015 (1.005-1.030); Urine Appearance Clear (CLEAR); Urine Color Yellow (Yellow); Urobilinogen Urine Norm (Negative); pH Urine 6 (5-7)
[2022-08-02 10:06] LABS: Add Urine Culture? No; Bacteria Urine TRACE /hpf; RBC Urine 0-4 /hpf (0-2); Squamous Epithelial Cell Urine 0-4 /hpf (0-5); WBC Urine 0-4 /hpf (0-5)
[2022-08-02 11:18] LABS: Adenovirus Not Detected (NOT DETECT); Chlamydia Pneumoniae Not Detected (NOT DETECT); Coronavirus 229E,HKU1,NL63,OC4 Not Detected (NOT DETECT); Human Metapneumovirus Not Detected (NOT DETECT); Human Rhinovirus/Enterovirus Not Detected (NOT DETECT); Influenza A Not Detected (NOT DETECT); Influenza A H1 Not Detected (NOT DETECT); Influenza A H1-2009 Not Detected (NOT DETECT); Influenza A H3 Not Detected (NOT DETECT); Influenza B Not Detected (NOT DETECT); Mycoplasma Pneumoniae Not Detected (NOT DETECT); Parainfluenza Virus Type 1 Not Detected (NOT DETECT); Parainfluenza Virus Type 2 Not Detected (NOT DETECT); Parainfluenza Virus Type 3 Not Detected (NOT DETECT); Parainfluenza Virus Type 4 Not Detected (NOT DETECT); Respiratory Syncytial Virus A Not Detected (NOT DETECT); Respiratory Syncytial Virus B Not Detected (NOT DETECT); SARS-COV-2 Not Detected (NOT DETECT)
[2022-08-02] MEDS: sodium chloride 0.9% 1,000 ML 75 ML IV (11:27)
[2022-08-02 12:35] LABS: Glucose Point of Care 263 mg/dL (70-110)
--- NOTE | 2022-08-02 13:16 | PM.HP ---
Providers/Chief Complaint Admitting Physician: Viviana Tyson MD Chief Complaint: SOB History of Present Illness Jose Maria Figueroa is a 66 year old male who is a halfway resident with past medical history of right AKA, CAD, diabetes, hypertension, hypothyroidism, morbid obesity with a BMI of 41 was brought in from the halfway today because of hypoxia. As per the patient and patient's son patient has been having abdominal pain along with nausea and vomiting for last 1 week which had resolved 2 days ago. Yesterday when he was checked up while he was sleeping overnight he was found to be hypoxic so he presented to the ER. Patient does complain of epigastric to right upper quadrant pain. Also complains of occasional nausea but no vomiting for last 2 days ago on my examination patient had just vomited. Patient has been having soft bowel movements without any diarrhea. Denies of having any fevers. Patient does not require any oxygen at home but currently is requiring 3 to 4 L of oxygen to maintain saturations over 91%. Review of Systems General: Reports: 10 or more systems reviewed and unremarkable except in HPI and below Const: Denies: fever(s), chills, body aches, change in appetite, change in weight, malaise, night sweats, diaphoresis, change in sleep pattern, daytime sleepiness or snoring Eyes: Denies: change in vision, blurry vision, photophobia, eye discomfort or eye discharge ENMT: Denies: throat pain, enlarged tonsils, hoarseness, mouth pain, oral sores, dry mouth, tinnitus, nasal congestion or post nasal drip Card: Denies: chest pain, palpitations, irregular heart rhythm, edema, swelling of feet/ankles, lightheadedness, syncope, pre-syncope, dyspnea on exertion, orthopnea, leg pain with exertion or acrocyanosis Resp: Denies: dyspnea, productive cough, non-productive cough, wheezing, stridor, pain on inspiration, change in phlegm color, hemoptysis or chest congestion GI: Denies: abdominal pain, nausea, vomiting, hematemesis, coffee ground emesis, dysphagia, heartburn, diarrhea, constipation, bloating, GI cramping, change in bowel habits, pain on defecation, hematochezia or melena : Denies: flank pain, difficulty urinating, dysuria, urinary frequency, urinary urgency, urinary hesitancy, urinary dribbling, difficulty starting urination, change in urine stream, nocturia or hematuria Musc: Denies: neck pain, back pain, extremity pain, joint pain, joint swelling, joint redness, joint stiffness or limited range of motion Neuro: Denies: headache(s), numbness in extremities, weakness in extremities, sensory changes, lack of coordination, difficulty walking, frequent falls, dizziness, vertigo, confusion, Slurred speech present, difficulty communicating thoughts or seizure-like activity Psych: Denies: anxiety, depression, mood swings, panic attacks, hopelessness or irritability Endo: Denies: polyuria, polydipsia, tired all the time, cold intolerance, excessive sweating, flushing or heat intolerance Nimesh/Lymph: Denies: easy bruising or easy bleeding All/Imm: Denies: tongue swelling, facial swelling or acute wheezing Medications/Allergies Home Medications Medication Instructions Recorded Confirmed Last Taken Type acetaminophen 325 mg tablet 650 mg PO Q4H PRN Pain 03/09/22 08/02/22 Unknown History alprazolam 1 mg tablet 0.5 mg PO BEDTIME 03/09/22 08/02/22 Unknown History ammonium lactate 12 % topical cream 1 applic topical BID PRN skin 03/09/22 08/02/22 Unknown History integrity atorvastatin 40 mg tablet 40 mg PO BEDTIME 03/09/22 08/02/22 Unknown History bisacodyl 10 mg rectal suppository 10 mg NC DAILY PRN Constipation 03/09/22 08/02/22 Unknown History bisacodyl 5 mg tablet,delayed 20 mg PO DAILY PRN Constipation 03/09/22 08/02/22 Unknown History release carbamide peroxide 6.5 % ear drops 5 drp otic (ear) DAILY PRN Wax 03/09/22 08/02/22 Unknown History Removal cholecalciferol (vitamin D3) 10 20 mcg PO DAILY 03/09/22 08/02/22 Unknown History mcg (400 unit) capsule (Vitamin D3) clopidogrel 75 mg tablet 75 mg PO DAILY 03/09/22 08/02/22 Unknown History docusate sodium 100 mg capsule 100 mg PO DAILY 03/09/22 08/02/22 Unknown History escitalopram oxalate 20 mg tablet 20 mg PO DAILY 03/09/22 08/02/22 Unknown History (Lexapro) exenatide microspheres 2 mg/0.85 2 mg SUBCUT Q7D 03/09/22 08/02/22 Unknown History mL subcutaneous auto-injector (Bydureon BCise) furosemide 20 mg tablet (Lasix) 20 mg PO DAILY 03/09/22 08/02/22 Unknown History gabapentin 600 mg tablet 600 mg PO TID 03/09/22 08/02/22 Unknown History hydrocodone 5 mg-acetaminophen 325 1 tab PO Q8H PRN Pain 03/09/22 08/02/22 Unknown History mg tablet ibuprofen 600 mg tablet 600 mg PO Q6H PRN Pain 03/09/22 08/02/22 Unknown History icosapent ethyl 1 gram capsule 2 g PO BID 03/09/22 08/02/22 Unknown History (Vascepa) insulin aspart U-100 100 unit/mL See Rx Instructions .Route .COMPLEX 03/09/22 08/02/22 Unknown History subcutaneous solution (Novolog U-100 Insulin aspart) insulin detemir U-100 100 unit/mL 84 unit SUBCUT BID 03/09/22 08/02/22 Unknown History subcutaneous solution (Levemir U-100 Insulin) levothyroxine 50 mcg tablet 50 mcg PO DAILY 03/09/22 08/02/22 Unknown History magnesium hydroxide 400 mg/5 mL 30 ml PO DAILY PRN Constipation 03/09/22 08/02/22 Unknown History oral suspension (Milk of Magnesia) magnesium oxide 400 mg PO TID 03/09/22 08/02/22 Unknown History menthol 4 % topical gel (Biofreeze 1 applic topical Q4H PRN Pain 03/09/22 08/02/22 Unknown History (menthol)) metformin 500 mg tablet 500 mg PO BID 03/09/22 08/02/22 Unknown History metoprolol tartrate 50 mg tablet 50 mg PO BID 03/09/22 08/02/22 Unknown History miconazole nitrate 2 % topical 1 applic topical Q8H PRN yeast 03/09/22 08/02/22 Unknown History cream sodium phosphates 19 gram-7 118 ml NC DAILY PRN Constipation 03/09/22 08/02/22 Unknown History gram/118 mL enema (Enema) tamsulosin 0.4 mg capsule 0.8 mg PO DAILY 03/09/22 08/02/22 Unknown History trazodone 50 mg tablet 50 mg PO BEDTIME 03/09/22 08/02/22 Unknown History albuterol sulfate 90 mcg/actuation 2 inh inhalation Q8H PRN shortness 03/12/22 08/02/22 Unknown Rx aerosol inhaler of breath or wheezing #8.5 grams apixaban 5 mg tablet (Eliquis) 5 mg PO BID #120 tabs 03/12/22 08/02/22 Unknown Rx budesonide 90 mcg/actuation breath 2 inh inhalation BID 08/02/22 08/02/22 Unknown History activated powder inhaler (Pulmicort Flexhaler) calcium carbonate 200 mg calcium 200 mg PO Q6H PRN heart burn 08/02/22 08/02/22 Unknown History (500 mg) chewable tablet (Tums) cyclobenzaprine 10 mg tablet 10 mg PO BID PRN Muscle Pain 08/02/22 08/02/22 Unknown History famotidine 20 mg tablet 20 mg PO BID 08/02/22 08/02/22 Unknown History loperamide 2 mg capsule 4 mg PO DAILY PRN Diarrhea 08/02/22 08/02/22 Unknown History phenol 1.4 % mucosal aerosol spray 2 spray mucous membrane DAILY PRN 08/02/22 08/02/22 Unknown History Sore Throat Allergies Allergy/AdvReac Type Severity Reaction Status Date / Time iodine Allergy Unknown Unknown Verified 03/10/22 11:05 PFSH Acute PFSH: Medical History (Updated 08/02/22 @ 15:05 by Eric Bernal MD) Above knee amputation of right lower extremity Back pain BPH (benign prostatic hyperplasia) CAD (coronary artery disease) Chronic pain Diabetes GERD (gastroesophageal reflux disease) Hemiplegia affecting left nondominant side Hyperlipidemia Hypertension Hypothyroidism Obesity Stroke Surgical History Hx of AKA (above knee amputation) Social History Lives independently: No Housing: Jail Vitals/I&O/Wt Last Vital Signs Temp 98.9 F 08/02/22 06:28 Pulse 108 H 08/02/22 09:57 Resp 20 H 08/02/22 09:57 BP 146/72 08/02/22 06:28 Pulse Ox 94 08/02/22 09:57 O2 Del Method 08/02/22 09:57 O2 Flow Rate 2 08/02/22 09:57 08/01/22 08/02/22 08/02/22 22:59 06:59 14:59 Intake Total 50 / 50 120 / 120 Balance 50 / 50 120 / 120 Weight last 48 hrs Weight 143.154 kg Weight 136.078 kg Physical Exam Narrative: EXAM NARRATIVE: General: No acute distress, AO x3, NC oxygen supplementation, right AKA HEENT: PERRLA, pupils bilaterally equal and reactive Chest: Bilateral bronchial breath sounds all over the lung [place], coarse crackles present in the right lower zone CVS: S1-S2 regular, no murmurs, no tachycardia, no gallops, no rubs Abdomen: Soft, nontender, no organomegaly, bowel sounds present, morbidly obese Neuro: No focal deficits, no facial deformity, AO x3, power 5/5 in all limbs Data 08/02/22 02:33 08/02/22 02:33 Micro: Microbiology 08/02/22 09:09 Bacterial Antigens - Final Urine,Voided 08/02/22 09:09 Legionella Urinary Antigen - Final Urine,Voided 08/02/22 04:12 Blood Culture - Preliminary Blood SPECIMEN COLLECTED 08/02/22 04:00 Blood Culture - Preliminary Blood SPECIMEN COLLECTED A&P Assessment and plan (1) Acute and chronic respiratory failure with hypoxia: Most likely secondary COPD exacerbation in setting of aspiration pneumonia. DuoNebs every 6 hour, budesonide twice daily. Incentive spirometry, flutter valve. Oxygen supplementation keeping saturation over 88%. Slight Most recent echocardiogram from February 2022 shows an EF of 64% without regional wall motion abnormality, mild LVH. Study was technically difficult. (2) Community acquired pneumonia: High concern for aspiration pneumonia in setting of vomiting for last [address] chest without contrast. Sputum culture, MRSA swab, blood culture, urine Legionella, bacterial antigen. For now empirically start patient on vancomycin and Zosyn. Will de-escalate antibiotics as per culture results. (3) Abdominal pain: Most likely viral gastroenteritis. Liver functions within normal limits. CT abdomen pelvis to rule out small bowel obstruction, ileus or any other etiology. Protonix 40 mg IV daily, Zofran as needed. (4) Nausea and vomiting: (5) Hyponatremia: Most likely secondary to nausea and vomiting leading to dehydration. For now start patient on normal saline at 75 cc/h. Monitor BMP daily. Plan Analgesia: Tylenol as needed, home dose of hydrocodone 5 mg every 8 hours as needed, gabapentin 600 mg 3 times daily. Add Requip. Glycemic control: Continue home dose of Levemir 84 units twice daily, insulin sliding scale high-dose protocol. Check A1c. Nutrition: Mechanical soft carb consistent diet CODE STATUS: Discussed in detail with patient and patient's son. Full code. PUD prophylaxis: Protonix DVT prophylaxis: Eliquis will suffice as DVT prophylaxis Discharge planning: Back to halfway once medically stable. Admit to [facility] with telemetry. This documentation was created by [email or web address] state highway police officer software. Every effort was made to ensure accuracy of state highway police officer. Any obvious errors or omissions should be clarified with the author of the document. Attestations Medical Necessity Statement*: Admission for more than 2 midnights for management of hypoxia secondary to possible pneumonia Time Spent in Patient Care: Greater than 35 minutes Coding Level of Care Code Acute Alum Operator for [facility] Fw Diagnoses Acute and chronic respiratory failure with hypoxia J96.21 Community acquired pneumonia J18.9 Abdominal pain R10.9 Nausea and vomiting R11.2 Hyponatremia E87.1
[2022-08-02] MEDS: HYDROcodone-acetaminophen 5-325 mg Tablet 1 TAB PO (14:11)
[2022-08-02] MEDS: ondansetron 2 mg/ML SDV 2 mL 4 MG IVP (14:49)
--- NOTE | 2022-08-02 14:58 | CTR_ITS ---
PROCEDURE INFORMATION: Exam: CT Abdomen And Pelvis Without Contrast Exam date and time: 08/02/2022 4:09 PM Age: 66 years old Clinical indication: Abdominal pain; Additional info: Abdominal pain, n/v TECHNIQUE: Imaging protocol: Computed tomography of the abdomen and pelvis without contrast. Radiation optimization: All CT scans at this facility use at least one of these dose optimization techniques: automated exposure control; mA and/or kV adjustment per patient size (includes targeted exams where dose is matched to clinical indication); or iterative reconstruction. COMPARISON: [place] [id number] 03/09/2022 6:12 PM RADIATION DOSE METRICS: Total DLP (mGy-cm): 1419.43 FINDINGS: Lungs: Patulous opacity at the right lung base which is not there is confluent as 03/09/2022 study. Liver: Punctate low-attenuation lesion in the right hepatic dome likely reflecting a subcentimeter cyst. Gallbladder and bile ducts: Cholecystectomy. No ductal dilation. Pancreas: Normal. No ductal dilation. Spleen: Normal. No splenomegaly. Adrenal glands: Normal. No mass. Kidneys and ureters: Areas of cortical scarring seen in the upper pole of the left kidney. No hydronephrosis. Stomach and bowel: Scattered colonic diverticulosis without findings of acute diverticulitis. No obstruction. No mucosal thickening. Appendix: No evidence of appendicitis. Intraperitoneal space: Unremarkable. No free air. No significant fluid collection. Vasculature: Unremarkable. No abdominal aortic aneurysm. Lymph nodes: Unremarkable. No enlarged lymph nodes. Urinary bladder: Unremarkable as visualized. Reproductive: Unremarkable as visualized. Bones/joints: No acute fracture. Soft tissues: Unremarkable. CT/CT abdomen pelvis wo con [id number] IMPRESSION: 1. No acute intra-abdominal findings. 2. Patulous consolidation at the right lung base which is not as confluent compared to 03/09/2022 study.
[2022-08-02 17:06] LABS: Glucose Point of Care 270 mg/dL (70-110)
[2022-08-02] MEDS: insulin lispro 100 unit/1 mL SUBCUT ×2 (17:53→21:03)
[2022-08-02] MEDS: ferrous gluconate 324 mg Tablet PO (17:53)
[2022-08-02] MEDS: acetaminophen 325 mg Tablet 650 MG PO (19:24)
[2022-08-02] MEDS: budesonide 0.5 mg/2 mL Neb INHALATION (20:12)
[2022-08-02 20:16] LABS: Glucose Point of Care 215 mg/dL (70-110)
[2022-08-02] MEDS: atorvastatin 40 mg Tablet PO (21:02)
[2022-08-02] MEDS: trazodone 50 mg Tablet PO (21:02)
[2022-08-02] MEDS: ALPRAZolam 0.5 mg Tablet PO (21:02)
[2022-08-03] VITALS (16 sets, daily range): BP systolic 113–128; BP diastolic 61–70; PULSE 88–106; RESP 17–20; TEMP 36.7–37.9; O2SAT 88–95
[2022-08-03] MEDS: piperacillin-tazobactam 3.375 GM in sodium chloride 0.9% (plus) 50 ML IV ×3 (01:28→16:49)
[2022-08-03] MEDS: sodium chloride 0.9% 1,000 ML 75 ML IV (01:29)
[2022-08-03] MEDS: ipratropium-albuterol 3 mL Neb INHALATION ×4 (03:24→20:07)
[2022-08-03] MEDS: acetaminophen 325 mg Tablet 650 MG PO ×2 (05:44→21:16)
[2022-08-03 06:19] LABS: Basophils % 0.3 %; Eosinophils # 0.4 10^3/uL (0.0-0.8); Eosinophils % 3.9 %; Hematocrit 42.5 % (42.0-52.0); Hemoglobin 13.6 g/dL (11.7-16.6); Lymphocytes # 1.3 10^3/uL (0.8-4.8); Lymphocytes % 12.4 %; Mean Corpuscular Hemoglobin 28.3 pg (28.0-34.0); Mean Corpuscular Volume 88.4 fl (80-94); Monocytes # 0.8 10^3/uL (0.2-0.9); Monocytes % 7.8 %; Neutrophils # 7.68 10^3/uL (1.8-7.7); Neutrophils % 74.6 %; Nucleated Red Blood Cells % 0 %; Platelet Count 238 10^3/cmm (130-400); Red Blood Count 4.81 10^6/uL (4.1-5.3); Red Cell Distribution Width 13.2 % (12.1-15.1); White Blood Count 10.3 10^3/uL (4.0-10.0)
[2022-08-03 06:33] LABS: Alanine Aminotransferase 23 U/L (0-41); Albumin Level 3.1 g/dL (3.5-5.2); Alkaline Phosphatase 122 U/L (40-130); Anion Gap 13.9 (5-19); Aspartate Amino Transferase 28 U/L (0-40); Blood Urea Nitrogen 17 mg/dL (8-23); Calcium 9.1 mg/dL (8.5-10.5); Carbon Dioxide 29 mmol/L (22-29); Chloride 97 mmol/L (98-107); Chol HDL Ratio 3.56 mg/dL (1.0-5.00); Cholesterol 89 mg/dL (0-200); Globulin 4.5 g/dL (1.3-4.6); Glomerular Filtration Rate 74.5 mL/min (90-130); Glucose 106 mg/dL (65-115); HDL Cholesterol 25 mg/dL (60-100); LDL Cholesterol Calculated 41 mg/dL (50-129); Magnesium 1.5 mg/dL (1.7-2.3); Osmolality Calculated 284 mOsm/kg (285-295); Phosphorus 4.7 mg/dL (2.5-4.5); Potassium 3.9 mmol/L (3.5-5.1); Sodium 136 mmol/L (136-145); Total Bilirubin 0.4 mg/dL (0.15-1.2); Total Protein 7.6 g/dL (6.6-8.7); Triglycerides 117 mg/dL (0-150); VLDL Cholestrol Calculation 23 mg/dL (0-30)
[2022-08-03 06:34] LABS: Glucose Point of Care 103 mg/dL (70-110)
[2022-08-03] MEDS: budesonide 0.5 mg/2 mL Neb INHALATION ×2 (07:32→20:07)
[2022-08-03 08:09] LABS: Estmated Average Glucose 212
[2022-08-03] MEDS: levothyroxine 50 mcg Tablet PO (08:35)
[2022-08-03] MEDS: clopidogrel 75 mg Tablet PO (08:36)
[2022-08-03] MEDS: apixaban 5 mg Tablet PO ×2 (08:36→17:42)
[2022-08-03] MEDS: escitalopram 10 mg Tablet 20 MG PO (08:36)
[2022-08-03] MEDS: tamsulosin 0.4 mg Capsule 0.8 MG PO (08:36)
[2022-08-03] MEDS: ferrous gluconate 324 mg Tablet PO ×2 (08:36→17:42)
[2022-08-03] MEDS: gabapentin 300 mg Capsule 600 MG PO ×3 (08:37→21:14)
[2022-08-03] MEDS: pantoprazole 40 mg SDV IVP (08:37)
[2022-08-03] MEDS: metoprolol tartrate 50 mg Tablet PO ×2 (08:38→17:42)
[2022-08-03] MEDS: FUROsemide 10 mg/mL SDV 4mL 40 MG IVP (10:04)
[2022-08-03 11:25] LABS: Glucose Point of Care 205 mg/dL (70-110)
[2022-08-03] MEDS: cyclobenzaprine 10 mg Tablet 5 MG PO (12:09)
[2022-08-03] MEDS: insulin lispro 100 unit/1 mL SUBCUT ×3 (12:10→21:18)
--- NOTE | 2022-08-03 12:46 | P.PN_ITS ---
Subjective Subjective: Today morning seen with family at bedside. Patient states he is feeling better today. But currently on 5 to 6 L saturating 93%. No episodes of nausea or vomiting further. T-max since last night 102.7 Fahrenheit. Vitals/I&O/Wt Last Vital Signs Temp 98.2 F 08/03/22 11:38 Pulse 94 08/03/22 11:38 Resp 18 08/03/22 11:38 BP 117/70 08/03/22 11:38 Pulse Ox 93 08/03/22 11:38 O2 Del Method 08/03/22 11:38 O2 Flow Rate 6 08/03/22 11:38 08/02/22 08/03/22 08/03/22 22:59 06:59 14:59 Intake Total 1150 / 1680 1550 / 3230 1113.25 / 1113.25 Output Total 425 / 425 875 / 875 Balance 725 / 1255 1550 / 2805 238.25 / 238.25 Weight last 48 hrs Weight 142.201 kg Weight 143.154 kg Weight 136.078 kg Physical Exam Narrative: EXAM NARRATIVE: General: No acute distress, AO x3, NC oxygen supplementation, right AKA HEENT: PERRLA, pupils bilaterally equal and reactive Chest: Bilateral bronchial breath sounds all over the lung [place], coarse crackles present in the right lower zone CVS: S1-S2 regular, no murmurs, no tachycardia, no gallops, no rubs Abdomen: Soft, nontender, no organomegaly, bowel sounds present, morbidly obese Neuro: No focal deficits, no facial deformity, AO x3, power 5/5 in all limbs Data 08/03/22 05:40 08/03/22 05:40 Micro: Microbiology 08/02/22 17:05 Gram Stain - Final Sputum - Expectorated Sputum Sputum Culture - Preliminary 08/02/22 04:12 Blood Culture - Preliminary Blood NEGATIVE TO DATE 08/02/22 04:00 Blood Culture - Preliminary Blood NEGATIVE TO DATE 08/02/22 15:05 Stool Lactoferrin - Final Stool Enteric Pathogens (PCR) - Final Parasite Antigen Panel - Final C.difficile Toxin B Gene (PCR) - Final Occult Blood (FIT) - Final 08/02/22 09:09 MRSA Culture - Final Nose 08/02/22 09:09 Bacterial Antigens - Final Urine,Voided 08/02/22 09:09 Legionella Urinary Antigen - Final Urine,Voided A&P Assessment and plan (1) Acute and chronic respiratory failure with hypoxia: Most likely secondary COPD exacerbation in setting of aspiration pneumonia. DuoNebs every 6 hour, budesonide twice daily. Incentive spirometry, flutter valve. Out of bed to chair Oxygen supplementation keeping saturation over 88%. Most recent echocardiogram from February 2022 shows an EF of 64% without regional wall motion abnormality, mild LVH. Study was technically difficult. Strict input output charting. Patient positive. Stop IV fluids. Will give IV Lasix 40 mg one-time. Monitor blood pressures and sodium levels. (2) Community acquired pneumonia: High concern for aspiration pneumonia in setting of vomiting for last [address] chest without contrast results appreciated. Sputum culture awaited. MRSA positive. Urine Legionella, bacterial antigen negative. For now empirically start patient on vancomycin and Zosyn. Will de-escalate antibiotics as per culture results. Qualifiers: Laterality: right Lung location: lower lobe of lung Qualified Code(s): J18.9 - Pneumonia, unspecified organism (3) Abdominal pain: Most likely viral gastroenteritis. Liver functions within normal limits. CT abdomen pelvis ruled out small bowel obstruction, ileus or any other etiology. Protonix 40 mg IV daily, Zofran as needed. (4) Nausea and vomiting: Continue on mechanical soft diet. (5) Hyponatremia: Resolved. Will monitor daily. Plan Analgesia: Tylenol as needed, home dose of hydrocodone 5 mg every 8 hours as needed, gabapentin 600 mg 3 times daily. Add Requip. Glycemic control: Continue home dose of Levemir 84 units twice daily, insulin sliding scale high-dose protocol. A1c 9 Nutrition: Mechanical soft carb consistent diet CODE STATUS: Discussed in detail with patient and patient's son. Full code. PUD prophylaxis: Protonix DVT prophylaxis: Eliquis will suffice as DVT prophylaxis Discharge planning: Back to custodial once medically stable. [facility] with [facility] with telemetry. This documentation was created by [employer] receiving weigher software. Every effort was made to ensure accuracy of receiving weigher. Any obvious errors or omissions should be clarified with the author of the document. Attestations Medical Necessity Statement*: Patient requires further hospitalization for management of hypoxia secondary to possible aspiration pneumonia through vomitus in setting of recurrent nausea and vomiting from gastroenteritis. Time Spent in Patient Care: Greater than 35 minutes Coding Level of Care Code Acute Manager Advanced for g Fwd Diagnoses Acute and chronic respiratory failure with hypoxia J96.21 Community acquired pneumonia J18.9 Laterality: right Lung location: lower lobe of lung Abdominal pain R10.9 Nausea and vomiting R11.2 Hyponatremia E87.1
[2022-08-03 16:59] LABS: Glucose Point of Care 246 mg/dL (70-110)
[2022-08-03 20:46] LABS: Glucose Point of Care 219 mg/dL (70-110)
[2022-08-03] MEDS: atorvastatin 40 mg Tablet PO (21:14)
[2022-08-03] MEDS: trazodone 50 mg Tablet PO (21:15)
[2022-08-03] MEDS: ALPRAZolam 0.5 mg Tablet PO (21:16)
[2022-08-04] VITALS (13 sets, daily range): BP systolic 132–176; BP diastolic 71–97; PULSE 85–104; RESP 18–20; TEMP 36.7–38; O2SAT 90–96
[2022-08-04] MEDS: piperacillin-tazobactam 3.375 GM in sodium chloride 0.9% (plus) 50 ML IV ×3 (01:40→18:00)
[2022-08-04] MEDS: ipratropium-albuterol 3 mL Neb INHALATION ×4 (03:21→19:32)
[2022-08-04 03:34] LABS: Basophils # 0.1 10^3/uL (0.0-0.1); Basophils % 0.8 %; Eosinophils # 0.7 10^3/uL (0.0-0.8); Eosinophils % 7.4 %; Hematocrit 41.5 % (42.0-52.0); Hemoglobin 13.5 g/dL (11.7-16.6); Lymphocytes # 2.8 10^3/uL (0.8-4.8); Lymphocytes % 28.9 %; Mean Corpuscular HGB Conc 32.5 g/dL (30.0-36.0); Mean Corpuscular Hemoglobin 28.2 pg (28.0-34.0); Mean Corpuscular Volume 86.6 fl (80-94); Mean Platelet Volume 10.3 fL (7.4-10.4); Monocytes % 10.4 %; Neutrophils # 4.97 10^3/uL (1.8-7.7); Neutrophils % 50.9 %; Nucleated Red Blood Cells # 0.1 /100WBC; Nucleated Red Blood Cells % 0.8 %; Platelet Count 217 10^3/cmm (130-400); Red Blood Count 4.79 10^6/uL (4.1-5.3); Red Cell Distribution Width 13.2 % (12.1-15.1); White Blood Count 9.8 10^3/uL (4.0-10.0)
[2022-08-04 06:09] LABS: Alanine Aminotransferase 27 U/L (0-41); Albumin Level 3.1 g/dL (3.5-5.2); Alkaline Phosphatase 115 U/L (40-130); Anion Gap 14.6 (5-19); Aspartate Amino Transferase 25 U/L (0-40); Blood Urea Nitrogen 17 mg/dL (8-23); Calcium 9.1 mg/dL (8.5-10.5); Carbon Dioxide 29 mmol/L (22-29); Chloride 98 mmol/L (98-107); Globulin 4.5 g/dL (1.3-4.6); Glomerular Filtration Rate 60.4 mL/min (90-130); Glucose 87 mg/dL (65-115); Osmolality Calculated 287 mOsm/kg (285-295); Potassium 3.6 mmol/L (3.5-5.1); Sodium 138 mmol/L (136-145); Total Bilirubin 0.3 mg/dL (0.15-1.2); Total Protein 7.6 g/dL (6.6-8.7)
[2022-08-04 06:24] LABS: Glucose Point of Care 90 mg/dL (70-110)
[2022-08-04] MEDS: budesonide 0.5 mg/2 mL Neb INHALATION ×2 (08:15→19:32)
[2022-08-04] MEDS: tamsulosin 0.4 mg Capsule 0.8 MG PO (09:42)
[2022-08-04] MEDS: ferrous gluconate 324 mg Tablet PO ×2 (09:42→18:00)
[2022-08-04] MEDS: escitalopram 10 mg Tablet 20 MG PO (09:43)
[2022-08-04] MEDS: levothyroxine 50 mcg Tablet PO (09:43)
[2022-08-04] MEDS: clopidogrel 75 mg Tablet PO (09:43)
[2022-08-04] MEDS: metoprolol tartrate 50 mg Tablet PO ×2 (09:43→18:00)
[2022-08-04] MEDS: apixaban 5 mg Tablet PO ×2 (09:44→18:00)
[2022-08-04] MEDS: gabapentin 300 mg Capsule 600 MG PO ×3 (09:44→20:13)
[2022-08-04] MEDS: pantoprazole 40 mg SDV IVP (09:45)
[2022-08-04 11:21] LABS: Glucose Point of Care 249 mg/dL (70-110)
[2022-08-04] MEDS: insulin lispro 100 unit/1 mL SUBCUT (13:05)
[2022-08-04 14:11] LABS: Vancomycin Trough 26.8 ug/mL (10-15)
--- NOTE | 2022-08-04 16:17 | P.PN_ITS ---
Subjective Subjective: He states overall he is doing okay. Discussed with him he had a fever again this morning. Denies chest pain or pressure. Vitals/I&O/Wt Last Vital Signs Temp 98.7 F 08/04/22 15:29 Pulse 100 08/04/22 15:29 Resp 18 08/04/22 15:29 BP 167/71 08/04/22 15:29 Pulse Ox 95 08/04/22 15:29 O2 Del Method 08/04/22 15:29 O2 Flow Rate 3 08/04/22 15:29 08/04/22 08/04/22 08/04/22 06:59 14:59 22:59 Intake Total 910 / 3547.00 480 / 480 Output Total 750 / 2625 500 / 500 Balance 160 / 922.00 -20 / -20 Weight last 48 hrs Weight 144.242 kg Weight 142.201 kg Physical Exam Const: COMMON NORMALS: patient oriented x3 and alert GENERAL APPEARANCE: cooperative NUTRITIONAL APPEARANCE: obese ORIENTATION/CONSCIOUSNESS: Yes awake HENMT: COMMON NORMALS: oropharynx normal Neck/C-Spine: COMMON NORMALS: no JVD Resp: COMMON NORMALS: normal respiratory effort AUSCULTATION: rhonchi Cardio: COMMON NORMALS: no JVD, regular rhythm, S1 normal heart sound present, S2 normal heart sound present and No murmurs present (Cardio) RHYTHM: regular rhythm HEART SOUNDS: S1 normal heart sound present and S2 normal heart sound present GI: COMMON NORMALS: Normal to inspection, nondistended, normoactive bowel sounds present, Soft to palpation and non-tender PALPATION: Yes Soft to palpation Extremity: COMMON NORMALS: no joint enlargement and no pedal edema Neuro: COMMON NORMALS: patient oriented x3 and moves all extremities SENSORIUM/ORIENTATION: Yes alert Skin: COMMON NORMALS: no rashes or lesions noted GENERAL SKIN EXAM: no rashes or lesions noted Data 08/04/22 03:00 08/04/22 05:10 Micro: Microbiology 08/02/22 17:05 Gram Stain - Final Sputum - Expectorated Sputum Sputum Culture - Final Methicillin Resis Staph Aureus A&P Assessment and plan (1) Acute and chronic respiratory failure with hypoxia: Leukocytosis resolved. Again fever this morning 100.4 Fahrenheit. MRSA growing in sputum. Continue vancomycin. Continue empiric Zosyn for now after aspiration pneumonia due to persistent fevers. COPD exacerbation in setting of aspiration pneumonia. DuoNebs every 6 hour, budesonide twice daily. Incentive spirometry, flutter valve. Out of bed to chair Oxygen supplementation keeping saturation over 88%. Most recent echocardiogram from February 2022 shows an EF of 64% without regional wall motion abnormality, mild LVH. Study was technically difficult. Strict input output charting. Off IVF. Received a dose of Lasix. Currently neutral balance. (2) Community acquired pneumonia: Urine culture growing MRSA. Continue vancomycin. After aspiration. Continue Zosyn. High concern for aspiration pneumonia in setting of vomiting for last [address] chest without contrast results appreciated. Urine Legionella, bacterial antigen negative. Qualifiers: Laterality: right Lung location: lower lobe of lung Qualified Code(s): J18.9 - Pneumonia, unspecified organism (3) Abdominal pain: Most likely viral gastroenteritis. No vomiting. Tolerating oral intake. Liver functions within normal limits. CT abdomen pelvis ruled out small bowel obstruction, ileus or any other etiology. Protonix 40 mg IV daily, Zofran as needed. (4) Nausea and vomiting: Continue on mechanical soft diet. (5) Hyponatremia: Resolved. Will monitor daily. Plan Analgesia: Tylenol as needed, home dose of hydrocodone 5 mg every 8 hours as needed, gabapentin 600 mg 3 times daily. Add Requip. Glycemic control: Continue home dose of Levemir 84 units twice daily, insulin sliding scale high-dose protocol. A1c 9 Nutrition: Mechanical soft carb consistent diet CODE STATUS: Full code. PUD prophylaxis: Protonix DVT prophylaxis: Eliquis will suffice as DVT prophylaxis Discharge planning: Back to custodial once medically stable. Attestations Medical Necessity Statement*: Continue admission for assessment of management of aspiration pneumonia with MRSA pneumonia, recurrent fever. Coding Level of Care Code Acute Bread And Pastry Baker for [facility] Fw Diagnoses Acute and chronic respiratory failure with hypoxia J96.21 Community acquired pneumonia J18.9 Laterality: right Lung location: lower lobe of lung Abdominal pain R10.9 Nausea and vomiting R11.2 Hyponatremia E87.1
[2022-08-04 17:17] LABS: Glucose Point of Care 110 mg/dL (70-110)
[2022-08-04] MEDS: ALPRAZolam 0.5 mg Tablet PO (20:13)
[2022-08-04] MEDS: trazodone 50 mg Tablet PO (20:14)
[2022-08-04] MEDS: atorvastatin 40 mg Tablet PO (20:14)
[2022-08-04 21:01] LABS: Glucose Point of Care 130 mg/dL (70-110)
[2022-08-05] VITALS (8 sets, daily range): BP systolic 119–131; BP diastolic 57–74; PULSE 76–99; RESP 16–18; TEMP 36.7–37.3; O2SAT 86–96
[2022-08-05] MEDS: ipratropium-albuterol 3 mL Neb INHALATION ×3 (01:34→16:35)
[2022-08-05] MEDS: piperacillin-tazobactam 3.375 GM in sodium chloride 0.9% (plus) 50 ML IV ×2 (01:40→10:21)
[2022-08-05] MEDS: acetaminophen 325 mg Tablet 650 MG PO (03:10)
[2022-08-05 05:29] LABS: Basophils % 0.4 %; Eosinophils # 0.8 10^3/uL (0.0-0.8); Eosinophils % 8.7 %; Hemoglobin 12.1 g/dL (11.7-16.6); Lymphocytes # 2.1 10^3/uL (0.8-4.8); Lymphocytes % 21.9 %; Mean Corpuscular HGB Conc 32.7 g/dL (30.0-36.0); Mean Corpuscular Hemoglobin 28.3 pg (28.0-34.0); Mean Corpuscular Volume 86.7 fl (80-94); Mean Platelet Volume 9.2 fL (7.4-10.4); Monocytes # 0.6 10^3/uL (0.2-0.9); Monocytes % 6.3 %; Neutrophils # 5.87 10^3/uL (1.8-7.7); Nucleated Red Blood Cells % 0 %; Platelet Count 223 10^3/cmm (130-400); Red Blood Count 4.27 10^6/uL (4.1-5.3); Red Cell Distribution Width 13.1 % (12.1-15.1); White Blood Count 9.5 10^3/uL (4.0-10.0)
[2022-08-05] MEDS: vancomycin 1,500 MG/300 ML PIGGYBACK 200 MG IV (05:36)
[2022-08-05 05:57] LABS: Anion Gap 13.6 (5-19); Blood Urea Nitrogen 15 mg/dL (8-23); Carbon Dioxide 27 mmol/L (22-29); Chloride 100 mmol/L (98-107); Glomerular Filtration Rate 55.1 mL/min (90-130); Glucose 75 mg/dL (65-115); Osmolality Calculated 284 mOsm/kg (285-295); Potassium 3.6 mmol/L (3.5-5.1); Sodium 137 mmol/L (136-145)
[2022-08-05 06:35] LABS: Glucose Point of Care 68 mg/dL (70-110)
[2022-08-05 08:07] LABS: Glucose Point of Care 114 mg/dL (70-110)
[2022-08-05] MEDS: budesonide 0.5 mg/2 mL Neb INHALATION (09:34)
[2022-08-05] MEDS: apixaban 5 mg Tablet PO ×2 (10:10→17:34)
[2022-08-05] MEDS: ferrous gluconate 324 mg Tablet PO ×2 (10:10→17:34)
[2022-08-05] MEDS: gabapentin 300 mg Capsule 600 MG PO (10:10)
[2022-08-05] MEDS: tamsulosin 0.4 mg Capsule 0.8 MG PO (10:11)
[2022-08-05] MEDS: metoprolol tartrate 50 mg Tablet PO ×2 (10:12→17:34)
[2022-08-05] MEDS: clopidogrel 75 mg Tablet PO (10:12)
[2022-08-05] MEDS: escitalopram 10 mg Tablet 20 MG PO (10:12)
[2022-08-05] MEDS: pantoprazole 40 mg SDV IVP ×2 (10:13→10:18)
[2022-08-05] MEDS: levothyroxine 50 mcg Tablet PO (10:19)
[2022-08-05 11:06] LABS: Glucose Point of Care 159 mg/dL (70-110)
--- NOTE | 2022-08-05 11:21 | P.DS_ITS ---
Discharge Providers Date of Admission: 08/02/22 05:23 Date of Discharge: August 05, 2022 Attending Provider at Admission: Viviana Tyson MD Attending Provider at Discharge: Morales Man Diagnoses at Discharge Discharge Diagnosis (1) Acute and chronic respiratory failure with hypoxia: Status: Acute (2) Community acquired pneumonia: Status: Acute Qualifiers: Laterality: right Lung location: lower lobe of lung Qualified Code(s): J18.9 - Pneumonia, unspecified organism (3) Abdominal pain: Status: Acute (4) Nausea and vomiting: Status: Acute (5) Hyponatremia: Status: Acute Reason for Visit Reason for Visit: SOB Hospital Course Hospital Course Pleasant 66-year-old gentleman with history of suboptimally controlled diabetes, AKA, CAD, CVA, HTN, HLD, obesity, hypothyroidism, BPH, other comorbidities was admitted for assessment management after presenting with shortness of breath, hypoxia, after episode of nausea and vomiting, with nausea vomiting resolved at presentation, but progressive respiratory symptoms. Found to have right lower lobe pneumonia, confirmed on CT chest, with nonspecific opacity in right lung base, favoring atelectasis or pneumonia. Incidentally noted moderate coronary artery calcification indicating presence of chronic disease, with known CAD, although remained asymptomatic. He was treated with Zosyn, vancomycin. Additionally felt to be in mild COPD exacerbation for which he also received breathing treatments, budesonide nebulization. Sputum cultures were collected eventually growing MRSA. Required oxygen support after 4 L nasal cannula, not normally noted to be on oxygen. We will treatment his oxygenation gradually improved, currently down to 2 L requirement. Subjectively he is feeling better. He has had no recurrence of nausea or vomiting. Nausea and vomiting were felt to be secondary to viral gastroenteritis, although NSAIDs related gastritis could contribute. Noted mild LANI, creatinine up to 1.3 with baseline around 1. He is asked to discontinue NSAIDs. Please reassess renal function. As he is otherwise improving, he would like to be discharged, he just completed antibiotic course with linezolid. In case of persistent GI symptoms please seek additional evaluation with endoscopy. On presentation hyponatremia, sodium down to 129. This has resolved with treatment of lung infection and initially received IV fluid challenge. Continue to optimize cardiac risk factors. His A1c is noted to be 9, although long-acting insulin is not increased as his glucose does reach down into the 80s and 1 value of 75. Continue consistent carbohydrate diet. Low-dose sliding scale insulin. Consider follow-up with endocrinology. On chest CT additional findings with mildly prominent mediastinal lymph nodes felt to be reactive, unchanged from prior, with prominent left axillary nodes with 2 showing rounded appearance and having short axis diameter 12 mm, these have slightly increased in size since prior exam, but most likely representing reactive adenopathy, but consider follow-up. Physical Exam Const: COMMON NORMALS: patient oriented x3 and alert GENERAL APPEARANCE: cooperative NUTRITIONAL APPEARANCE: obese ORIENTATION/CONSCIOUSNESS: Yes awake OTHER: Pleasant, conversant. States abdominal discomfort, feeling better. Happy to be discharging. HENMT: COMMON NORMALS: oropharynx normal Neck/C-Spine: COMMON NORMALS: no JVD Resp: COMMON NORMALS: normal respiratory effort and clear to auscultation bilaterally AUSCULTATION: clear to auscultation bilaterally Cardio: COMMON NORMALS: no JVD, regular rhythm, S1 normal heart sound present, S2 normal heart sound present and No murmurs present (Cardio) RHYTHM: regular rhythm HEART SOUNDS: S1 normal heart sound present and S2 normal heart sound present GI: COMMON NORMALS: Normal to inspection, nondistended, normoactive bowel sounds present, Soft to palpation and non-tender PALPATION: Yes Soft to palpation Extremity: COMMON NORMALS: no joint enlargement and no pedal edema OTHER: R AKA Neuro: COMMON NORMALS: patient oriented x3 and moves all extremities SENSORIUM/ORIENTATION: Yes alert Skin: COMMON NORMALS: no rashes or lesions noted GENERAL SKIN EXAM: no rashes or lesions noted Discharge Data Studies Completed and Pending Completed Studies During Hospitalization Category Date Time Status CT abdomen pelvis wo con [id number] Routine Cat Scan 08/02/22 14:[address] chest wo con [id number] Routine Cat Scan 08/02/22 08:22 Completed XR chest 1V portable [id number] Stat Exams 08/02/22 02:22 Completed Pending at discharge Category Date Time Status Bacterial Antigen Stat Lab 08/02/22 09:09 Received Basic Metabolic Panel AM LABS Lab 08/06/22 04:00 Ordered Basic Metabolic Panel AM LABS Lab 08/07/22 04:00 Ordered Blood Culture Stat Lab 08/02/22 04:12 Results COVID [SARS Covid-2 Antigen] Routine Lab 08/05/22 11:14 Uncollected Complete Blood Count w/Auto AM LABS Lab 08/06/22 04:00 Ordered Complete Blood Count w/Auto AM LABS Lab 08/07/22 04:00 Ordered Vancomycin Trough Timed Lab 08/06/22 17:00 Ordered Radiology Impressions Chest X-Ray 08/02/22 02:22 IMPRESSION: Incomplete lung expansion and crowding of the bronchovascular markings. These pulmonary findings may be secondary to predominantly interstitial edema. Infectious or inflammatory pneumonitis (atypical infection) may present a similar picture. Chest CT 08/02/22 08:22 IMPRESSION: 1. Nonspecific opacity in the right lung base, favoring atelectasis or pneumonia. 2. Numerous mildly prominent mediastinal lymph nodes felt to be reactive. This finding is stable when compared to the prior exam. 3. Moderate coronary arterial calcification, indicating the presence of coronary artery disease. If the patient has associated symptoms recommend management as per chest pain guidelines. If the patient is asymptomatic consider reviewing madifiable cardiovascular risk factors and managing as per guidelines for primary prevention. 4. Mildly prominent left axillary lymph nodes with 2 showing a rounded appearance and having a short axis diameter of 12 mm these have slightly increased in size since prior exam and most likely represent reactive adenopathy. Abdomen/Pelvis CT 08/02/22 14:58 IMPRESSION: 1. No acute intra-abdominal findings. 2. Patulous consolidation at the right lung base which is not as confluent compared to 03/09/2022 study. Laboratory Results WBC 9.5 10^3/uL (4.0-10.0) 08/05/22 05:16 RBC 4.27 10^6/uL (4.1-5.3) 08/05/22 05:16 Hgb 12.1 g/dL (11.7-16.6) 08/05/22 05:16 Hct 37.0 % (42.0-52.0) L 08/05/22 05:16 MCV 86.7 fl (80-94) 08/05/22 05:16 MCH 28.3 pg (28.0-34.0) 08/05/22 05:16 MCHC 32.7 g/dL (30.0-36.0) 08/05/22 05:16 RDW 13.1 % (12.1-15.1) 08/05/22 05:16 Plt Count 223 10^3/cmm (130-400) 08/05/22 05:16 MPV 9.2 fL (7.4-10.4) 08/05/22 05:16 Neut % (Auto) 62.0 % 08/05/22 05:16 Lymph % (Auto) 21.9 % 08/05/22 05:16 [place] % (Auto) 6.3 % 08/05/22 05:16 Eos % (Auto) 8.7 % 08/05/22 05:16 Baso % (Auto) 0.4 % 08/05/22 05:16 Neut # (Auto) 5.87 10^3/uL (1.8-7.7) 08/05/22 05:16 Lymph # (Auto) 2.1 10^3/uL (0.8-4.8) 08/05/22 05:16 [place] # (Auto) 0.6 10^3/uL (0.2-0.9) 08/05/22 05:16 Eos # (Auto) 0.8 10^3/uL (0.0-0.8) 08/05/22 05:16 Baso # (Auto) 0.0 10^3/uL (0.0-0.1) 08/05/22 05:16 Nucleated RBC % (auto) 0 % 08/05/22 05:16 Nucleated RBCs # 0.0 /100WBC 08/05/22 05:16 Specimen Type Arterial 08/02/22 03:48 Sample Site Radial, left 08/02/22 03:48 ABG pH 7.41 (7.35-7.45) 08/02/22 03:48 ABG pCO2 47.2 mmHg (35-45) H 08/02/22 03:48 ABG pO2 56.9 mmHg (80.0-100.0) L 08/02/22 03:48 ABG HCO3 29.9 mmol/L (22-26) H 08/02/22 03:48 ABG Base Excess 4.4 mmol/L (-2.0-2.0) H 08/02/22 03:48 Kuldeep Test Pos 08/02/22 03:48 Hematocrit 41.4 % (42-52) L 08/02/22 03:48 Hgb O2 Saturation 88.6 % (95-100) L 08/02/22 03:48 Carboxyhemoglobin 2.1 %THgb (0.4-20.1) 08/02/22 03:48 Methemoglobin 0.4 % (0.4-1.5) 08/02/22 03:48 Total Hemoglobin 13.5 g/dL (14-18) L 08/02/22 03:48 O2 Delivery Device Nc 08/02/22 03:48 O2 Liters/Min 2.0 % 08/02/22 03:48 Oceanography Teacher ID [email or web address] 08/02/22 03:48 Sodium 137 mmol/L (136-145) 08/05/22 05:16 Potassium 3.6 mmol/L (3.5-5.1) 08/05/22 05:16 Chloride 100 mmol/L (98-107) 08/05/22 05:16 Carbon Dioxide 27 mmol/L (22-29) 08/05/22 05:16 Anion Gap 13.6 (5-19) 08/05/22 05:16 BUN 15 mg/dL (8-23) 08/05/22 05:16 Creatinine 1.3 mg/dL (0.7-1.2) H 08/05/22 05:16 GFR Calculation 55.1 mL/min (90-130) L 08/05/22 05:16 Glucose 75 mg/dL (65-115) 08/05/22 05:16 POC Glucose 159 mg/dL (70-110) H 08/05/22 10:42 Estimat Average Glucose 212 08/03/22 05:40 Hemoglobin A1c 9.0 % (4.0-6.0) H 08/03/22 05:40 Calculated Osmolality 284 mOsm/kg (285-295) L 08/05/22 05:16 Lactic Acid 1.5 mmol/L (0.5-2.2) 08/02/22 02:33 Calcium 9.0 mg/dL (8.5-10.5) 08/05/22 05:16 Phosphorus 4.7 mg/dL (2.5-4.5) H 08/03/22 05:40 Magnesium 1.5 mg/dL (1.7-2.3) L 08/03/22 05:40 Iron 28 ug/dL (59-158) L 08/02/22 02:33 TIBC 230 mcg/dl 08/02/22 02:33 % Saturation 12.1 % (20-50) L 08/02/22 02:33 Unsat Iron Binding 202 ug/dL (112-347) 08/02/22 02:33 Total Bilirubin 0.3 mg/dL (0.15-1.2) 08/04/22 05:10 AST 25 U/L (0-40) 08/04/22 05:10 ALT 27 U/L (0-41) 08/04/22 05:10 Alkaline Phosphatase 115 U/L (40-130) 08/04/22 05:10 NT-Pro-B Natriuret Pep 148 pg/mL (0-125) H 08/02/22 02:33 Total Protein 7.6 g/dL (6.6-8.7) 08/04/22 05:10 Albumin 3.1 g/dL (3.5-5.2) L 08/04/22 05:10 Globulin 4.5 g/dL (1.3-4.6) 08/04/22 05:10 Triglycerides 117 mg/dL (0-150) 08/03/22 05:40 Cholesterol 89 mg/dL (0-200) 08/03/22 05:40 LDL Cholesterol, Calc 41 mg/dL (50-129) L 08/03/22 05:40 Total VLDL Cholesterol 23 mg/dL (0-30) 08/03/22 05:40 HDL Cholesterol 25 mg/dL (60-100) L 08/03/22 05:40 Cholesterol/HDL Ratio 3.56 mg/dL (1.0-5.00) 08/03/22 05:40 Vitamin B12 494 pg/mL (232-1245) 08/02/22 02:33 Folate 10.1 ng/mL (4.5-32.2) 08/02/22 02:33 Procalcitonin 0.12 ng/mL (0-0.5) 08/02/22 02:33 TSH 1.60 uIU/mL (0.27-4.20) 08/02/22 02:33 Urine Color Yellow (Yellow) 08/02/22 09:09 Urine Appearance Clear (CLEAR) 08/02/22 09:09 Urine pH 6 (5-7) 08/02/22 09:09 Ur Specific [place] 1.015 (1.005-1.030) 08/02/22 09:09 Urine Protein Trace (Negative) 08/02/22 09:09 Urine Glucose (UA) Norm (Normal) 08/02/22 09:09 Urine Ketones Negative (Negative) 08/02/22 09:09 Urine Blood Neg (Negative) 08/02/22 09:09 Urine Nitrate Negative (Negative) 08/02/22 09:09 Urine Bilirubin 1+ (Negative) H 08/02/22 09:09 Urine Urobilinogen Norm mg/dL (Negative) 08/02/22 09:09 Ur Leukocyte Esterase Negative (Negative) 08/02/22 09:09 Urine RBC 0-4 /hpf (0-2) H 08/02/22 09:09 Urine WBC 0-4 /hpf (0-5) H 08/02/22 09:09 Ur Squamous Epith Cells 0-4 /hpf (0-5) H 08/02/22 09:09 Amorphous Sediment Not Reportable 08/02/22 09:09 Urine Bacteria Trace /hpf (NONE) 08/02/22 09:09 Nasal Influ A H1 2008 PCR Not detected (NOT DETECT) 08/02/22 09:09 Vancomycin Trough 26.8 ug/mL (10-15) H* 08/04/22 12:57 Adenovirus (PCR) Not detected (NOT DETECT) 08/02/22 09:09 C. pneumoniae DNA (PCR) Not detected (NOT DETECT) 08/02/22 09:09 Coronavirus 229E (PCR) Not detected (NOT DETECT) 08/02/22 09:09 Human Metapneumovir PCR Not detected (NOT DETECT) 08/02/22 09:09 Influenza A (H1) PCR Not detected (NOT DETECT) 08/02/22 09:09 Influenza A (H3) PCR Not detected (NOT DETECT) 08/02/22 09:09 Influenza Type A (PCR) Not detected (NOT DETECT) 08/02/22 09:09 Influenza Type B (PCR) Not detected (NOT DETECT) 08/02/22 09:09 M. pneumoniae (PCR) Not detected (NOT DETECT) 08/02/22 09:09 Parainfluenza 1 (PCR) Not detected (NOT DETECT) 08/02/22 09:09 Parainfluenza 2 (PCR) Not detected (NOT DETECT) 08/02/22 09:09 Parainfluenza 3 (PCR) Not detected (NOT DETECT) 08/02/22 09:09 Parainfluenza 4 (PCR) Not detected (NOT DETECT) 08/02/22 09:09 RSV Type A (PCR) Not detected (NOT DETECT) 08/02/22 09:09 RSV Type B (PCR) Not detected (NOT DETECT) 08/02/22 09:09 Entero/Rhino (PCR) Not detected (NOT DETECT) 08/02/22 09:09 SARS-CoV-2 (PCR) Not detected (NOT DETECT) 08/02/22 09:09 Vitals Last Vital Signs Temp 98.2 F 08/05/22 07:44 Pulse 93 08/05/22 09:41 Resp 16 08/05/22 09:41 BP 119/57 08/05/22 07:44 Pulse Ox 92 08/05/22 09:41 O2 Del Method 08/05/22 09:41 O2 Flow Rate 2 08/05/22 09:41 Discharge Plan Discharge Patient Disposition: Xfer SNF Condition: Stable Prescriptions: New benzonatate 100 mg Capsule 100 mg PO TID PRN (Reason: Cough) Qty: 15 0RF linezolid 600 mg tablet 600 mg PO BID 10 Days Qty: 20 0RF Continued atorvastatin 40 mg Tablet 40 mg PO BEDTIME metformin 500 mg Tablet 500 mg PO BID acetaminophen 325 mg Tablet 650 mg PO Q4H PRN (Reason: Pain) gabapentin 600 mg Tablet 600 mg PO TID trazodone 50 mg Tablet 50 mg PO BEDTIME miconazole nitrate 2 % Cream 1 applic TOPICAL Q8H PRN (Reason: yeast) alprazolam 1 mg Tablet 0.5 mg PO BEDTIME hydrocodone-acetaminophen 5-325 mg Tablet 1 tab PO Q8H PRN (Reason: Pain) clopidogrel 75 mg Tablet 75 mg PO DAILY magnesium hydroxide [Milk of Magnesia] 400 mg/5 mL Suspension 30 ml PO DAILY PRN (Reason: Constipation) tamsulosin 0.4 mg Capsule 0.8 mg PO DAILY insulin aspart U-100 [Novolog U-100 Insulin aspart] 100 unit/mL Solution See Rx Instructions .ROUTE .COMPLEX Rx Instructions: 36 unit subcutaneously before meals and per SLIDING SCALE levothyroxine 50 mcg Tablet 50 mcg PO DAILY bisacodyl 10 mg Suppository 10 mg AL DAILY PRN (Reason: Constipation) metoprolol tartrate 50 mg Tablet 50 mg PO BID Enema gram/118 mL Enema 118 ml AL DAILY PRN (Reason: Constipation) carbamide peroxide 6.5 % Drops 5 drp OTIC (EAR) DAILY PRN (Reason: Wax Removal) Rx Instructions: both ears docusate sodium 100 mg Capsule 100 mg PO DAILY ammonium lactate 12 % Cream 1 applic TOPICAL BID PRN (Reason: skin integrity) bisacodyl 5 mg Tablet,Delayed Release (Dr/Ec) 20 mg PO DAILY PRN (Reason: Constipation) furosemide [Lasix] 20 mg Tablet 20 mg PO DAILY cholecalciferol (vitamin D3) [Vitamin D3] 10 mcg (400 unit) Capsule 20 mcg PO DAILY escitalopram oxalate [Lexapro] 20 mg Tablet 20 mg PO DAILY Levemir U-100 Insulin 100 unit/mL Solution 84 unit SUBCUT BID icosapent ethyl [Vascepa] 1 gram Capsule 2 g PO BID Biofreeze (menthol) 4 % Gel 1 applic TOPICAL Q4H PRN (Reason: Pain) Bydureon BCise 2 mg/0.85 mL Auto-Injector 2 mg SUBCUT Q7D Rx Instructions: Every Thursday magnesium oxide 400 mg magnesium Tablet 400 mg PO TID Eliquis 5 mg tablet 5 mg PO BID Qty: 120 6RF albuterol sulfate 90 mcg/actuation HFA aerosol inhaler 2 inh inhalation Q8H PRN (Reason: shortness of breath or wheezing) Qty: 8.5 4RF famotidine 20 mg Tablet 20 mg PO BID Tums 200 mg calcium (500 mg) Tablet,Chewable 200 mg PO Q6H PRN (Reason: heart burn) phenol 1.4 % Aerosol,[place] 2 spray MUCOUS MEMBRANE DAILY PRN (Reason: Sore Throat) Pulmicort Flexhaler 90 mcg/actuation Aerosol Powdr Breath Activated 2 inh INHALATION BID cyclobenzaprine 10 mg Tablet 10 mg PO BID PRN (Reason: Muscle Pain) loperamide 2 mg Capsule 4 mg PO DAILY PRN (Reason: Diarrhea) Rx Instructions: administer after each loose stool until symptoms controlled; do not exceed 8 mg per 24 hrs Discontinued ibuprofen 600 mg Tablet 600 mg PO Q6H PRN (Reason: Pain) Discharge Orders: Discharge Order (Routine); Ordered 08/05/22 Ordered By: Morales Man Referrals: Primary, provider [Other] - 4-7 days Discharge Diet: Diabetic and Soft Mechanical Discharge Activity: Increase activity as tolerated Patient Instructions: Opioid Safety Activity Restrictions/Additional Instructions: Continue oxygen 2 L, currently saturation 92%. Wean down as tolerating. Continue follow-up with [facility] out of bed. Start Pepcid. Nausea vomiting possibly secondary to viral gastroenteritis, however, may be due to NSAID induced gastritis or other cause. In case of any persistence of dyspepsia please refer for endoscopic evaluation. Would avoid NSAIDs if possible given also fluctuating renal function. Please recheck renal function in 3-4 days. Moderate coronary arterial calcification, indicating the presence of coronary artery disease. If the patient has associated symptoms recommend management as per chest pain guidelines. If the patient is asymptomatic consider reviewing madifiable cardiovascular risk factors and managing as per guidelines for primary prevention. Pleasant 66-year-old gentleman primary, providerNumerous pelvic R lymph nodes, a s well as mildly prominent left axillary lymph nodes which usually It appears that her initial reaccessed every 12 mm, there are slightly increased in size since prior exam. Improved from likely representing reactive adenopathy, but consider follow-up. A1c noted 9. Please continue to optimize diabetes control. Continue consistent carbohydrate diet. On 84 units of Levemir glucose does get down to 87 once to 75, so Levemir dose is not increased at this time. Please reassess glucose. Low-dose sliding. If difficulties with management consider follow-up with endocrinology. Discharge Attestations Time Spent in Discharge Care*: greater than 30 min Quality Metrics Clinical Quality Measures [ No reported AMI, CVA or VTE this stay] Coding Level of Care Code Acute Chg [facility] note Diagnoses Acute and chronic respiratory failure with hypoxia J96.21 Community acquired pneumonia J18.9 Laterality: right Lung location: lower lobe of lung Abdominal pain R10.9 Nausea and vomiting R11.2 Hyponatremia E87.1
[2022-08-05] MEDS: insulin lispro 100 unit/1 mL SUBCUT ×2 (12:14→17:33)
[2022-08-05 14:34] LABS: SARS Covid-2 Antigen negative (Negative)
--- NOTE | 2022-08-05 16:20 | PC.SOCIAL ---
IMM Update pg 2 of IMM updated and reviewed w/ patient. Copy provided and Copy dated, initialed and placed in chart.
== END 2022-08-05 19:45 | disposition skilled nursing facility (03) | DRG 177 ==
LOC: ER 03:37 → MEDSURG 05:42
PROVIDERS: Student in an Organized Health Care Education/Training Program; Admitting Provider Student in an Organized Health Care Education/Training Program; Emergency Provider Emergency Medicine; Visit Provider Internal Medicine
DX: J15.212 Pneumonia due to Methicillin resistant Staphylococcus aureus (principal); J96.21 Acute and chronic respiratory failure with hypoxia; E87.1 Hypo-osmolality and hyponatremia; J44.1 Chronic obstructive pulmonary disease with (acute) exacerbation; N17.9 Acute kidney failure, unspecified; Z68.41 Body mass index [BMI] 40.0-44.9, adult; J69.0 Pneumonitis due to inhalation of food and vomit; A08.4 Viral intestinal infection, unspecified; R59.0 Localized enlarged lymph nodes; I10 Essential (primary) hypertension; E11.9 Type 2 diabetes mellitus without complications; I25.10 Atherosclerotic heart disease of native coronary artery without angina pectoris; E66.01 Morbid (severe) obesity due to excess calories; E78.5 Hyperlipidemia, unspecified; E03.9 Hypothyroidism, unspecified; N40.0 Benign prostatic hyperplasia without lower urinary tract symptoms; K21.9 Gastro-esophageal reflux disease without esophagitis; Z86.73 Personal history of transient ischemic attack (TIA), and cerebral infarction without residual deficits; Z79.01 Long term (current) use of anticoagulants; Z79.1 Long term (current) use of non-steroidal anti-inflammatories (NSAID); Z79.4 Long term (current) use of insulin; Z89.611 Acquired absence of right leg above knee
CPT/HCPCS: 36415; 36416; 36600; 71045; 71250; 74176; 80048; 80053; 80061; 80202; 81001; 82274; 82607; 82746; 82805; 82962; 83036; 83540; 83550; 83605; 83630; 83735; 83880; 84100; 84145; 84443; 85025; 86403; 87040; 87070; 87077; 87186; 87205; 87426; 87449; 87486; 87493; 87506; 87581; 87633; 87641; 92523; 92610; 93005; 94640; 94664; 96365; 96372; 99285; C9113; J0696; J1815; J1940; J2405; J2543; J3370; J3475; J7030; J7040; J7626

== ENCOUNTER → 2023-01-19 11:12 | Outpatient (BNVA) | payer MEDICARE, MEDICAID, SELFPAY | PROVIDERS: PCP Nurse Practitioner Family; Referring Provider Nurse Practitioner Family; Visit Provider Student in an Organized Health Care Education/Training Program | DX: M75.41 Impingement syndrome of right shoulder (principal) | CPT/HCPCS: 20610; 73030; 99204; J3301 ==